=== PATIENT | male | born 1965 | race Caucasian/White ===

== ENCOUNTER → 2018-03-17 | Outpatient (CLI) | payer OTHER ==
--- NOTE | 2018-03-17 15:34 | XR ---
EXAMINATION TYPE: XR KUB DATE OF EXAM: 03/17/2018 COMPARISON: None INDICATION: Stone TECHNIQUE: Single view abdomen frontal view FINDINGS: There is a normal bowel gas pattern. Psoas margins are normal. No organomegaly is present. Cholecystectomy clips are in the right upper quadrant. No free air is identified. IMPRESSION: 1. Unremarkable Abdomen
== END | disposition home or self-care (01) ==
LOC: RADXRMAIN 15:08
PROVIDERS: ATTEND Urology
DX: N21.1 Calculus in urethra (principal)
CPT/HCPCS: 74018

== ENCOUNTER → 2018-03-27 | Outpatient (CLI) | payer OTHER ==
--- NOTE | 2018-03-27 09:28 | XR ---
EXAMINATION TYPE: XR KUB DATE OF EXAM: 03/27/2018 9:05 AM CLINICAL HISTORY: Right-sided nephrolithiasis. TECHNIQUE: Single supine KUB image of the abdomen is obtained. COMPARISON: 03/17/2018. FINDINGS: Scattered gas is seen in non-distended small bowel loops. Gas and fecal material is seen in non-distended colon. Multilevel mild degenerative changes of the thoracic spine are noted. Mild femo ral acetabular arthropathy is also seen. The lung bases are clear and the osseous structures are inta ct. Cholecystectomy clips are noted in the right upper quadrant. IMPRESSION: 1. No renal calculi are seen radiographically. 2. Nonobstructive bowel gas pattern.
== END | disposition home or self-care (01) ==
LOC: RADXRMAIN 08:53
PROVIDERS: ATTEND Urology
DX: N20.1 Calculus of ureter (principal)
CPT/HCPCS: 74018

== ENCOUNTER → 2018-03-31 | Outpatient (CLI) | payer OTHER ==
[2018-03-31 11:27] LABS: Basophils # (A) 0.1 k/uL (0-0.2); Basophils % (A) 1 %; Eosinophils # (A) 0.4 k/uL (0-0.7); Eosinophils % (A) 3 %; Lymphocytes # (A) 2.4 k/uL (1.0-4.8); Lymphocytes % (A) 19 %; MCH 32.4 pg (25.0-35.0); MCHC 33.6 g/dL (31.0-37.0); MCV 96.5 fL (80.0-100.0); Mean Platelet Volume 6.6; Monocytes # (A) 1.1 k/uL (0-1.0); Monocytes % (A) 9 %; Neutrophils # (A) 8.6 k/uL (1.3-7.7); Neutrophils % (A) 67 %; Platelet Count 257 k/uL (150-450); RBC 5.86 m/uL (4.30-5.90); RDW 12.9 % (11.5-15.5); WBC 12.8 k/uL (3.8-10.6)
[2018-03-31 11:34] LABS: HCT 56.6 % (39.0-53.0)
== END | disposition home or self-care (01) ==
LOC: LABWHC1 10:56 → LABPAT 10:58
PROVIDERS: ATTEND Urology
DX: Z01.812 Encounter for preprocedural laboratory examination (principal); N20.0 Calculus of kidney
CPT/HCPCS: 36415; 82565; 84520; 85025

== ENCOUNTER → 2018-03-31 | Outpatient (CLI) | payer OTHER ==
--- NOTE | 2018-03-31 09:58 | XR ---
EXAMINATION TYPE: XR KUB DATE OF EXAM: 03/31/2018 COMPARISON: 03/27/2018 INDICATION: Right ureteral calculus TECHNIQUE: Single view abdomen supine view FINDINGS: There is a normal bowel gas pattern. Psoas margins are normal. No organomegaly is present. There is a 1.0 cm calcific density at the tip of the right L3 transverse process level may be a right ureteral stone. This was present previously. No additional suspicious calcifications are evident. Fe jocelyn debris is present within the colon IMPRESSION: 1. Proximal right ureteral stone at the right L3 transverse process level.
== END ==
LOC: RADXRMAIN 09:16
PROVIDERS: ATTEND Urology
DX: N20.1 Calculus of ureter (principal)
CPT/HCPCS: 74018

== ENCOUNTER 2018-04-03 05:32 | Day surgery (SDC) | payer OTHER ==
[2018-03-31 12:46] VITALS: BMI 38.6
--- NOTE | 2018-04-02 20:08 | P.GSHP ---
History of Present Illness H&P Date: 04/02/18 53yo male with a 8mm stone at the right upj. He underwent eswl right 2 weeks ago He passed a small amount of stone THere is still stone at the upj He is still having pain. He comes for eswl right - Constitutional Constitutional: Reports anorexia, Reports chronic pain - Genitourinary (Male) Genitourinary: Reports as per HPI Past Medical History Past Medical History: Diabetes Mellitus, Hypertension, Osteoarthritis (OA), Renal Disease Additional Past Medical History / Comment(s): Hx of Diabetes, resolved for yrs and has been on no meds for yrs. Hx of and current kidney stones. History of Any Multi-Drug Resistant Organisms: None Reported Past Surgical History: Cholecystectomy Past Anesthesia/Blood Transfusion Reactions: No Reported Reaction Past Psychological History: No Psychological Hx Reported Smoking Status: Current every day smoker Past Alcohol Use History: Occasional Additional Past Alcohol Use History / Comment(s): Has been smoking 1 PPD, on and off for 15 yrs. Past Drug Use History: None Reported - Past Family History Mother Family Medical History: No Reported History Medications and Allergies Home Medications Medication Instructions Recorded Confirmed Type Tnpi-Zlmkdkgknkhu-Dptdvax Name 1 tab PO DIRECTED PRN 03/31/18 03/31/18 History Aspirin [Adult Low Dose Aspirin EC] 81 mg PO DAILY 03/31/18 03/31/18 History HYDROcodone/APAP 5-325MG [[place] 1 tab PO Q4HR PRN 03/31/18 03/31/18 History 5-325] Lisinopril [Zestril] 0.5 mg PO HS 03/31/18 03/31/18 History Allergies Allergy/AdvReac Type Severity Reaction Status Date / Time No Known Allergies Allergy Verified 03/31/18 12:44 Surgical - Exam - General well developed, well nourished, moderate distress - Eyes PERRL - ENT no hearing loss - Neck no masses, trachea midline - Respiratory normal expansion, normal respiratory effort - Cardiovascular Rhythm: regular - Abdomen Abdomen: soft, tender - Genitourinary normal penis with no external lesions, testicles present - Neurologic normal coordination, normal sensation - Musculoskeletal normal gait, normal posture - Psychiatric oriented to time, oriented to person, oriented to place, speech is normal, memory intact Assessment and Plan Assessment: Impression: right upj atone Plan: eswl right
[2018-04-03 06:33] LABS: Glucose,Whole Blood 122 mg/dL (75-99)
[2018-04-03 06:34] VITALS: RESP 16; TEMP 97.9
[2018-04-03] MEDS ORDERED: LIDOCAINE 1% 20 ML VIAL (10MG/ML) FOR IV START INTRADERMA ONE (06:34)
[2018-04-03] MEDS ORDERED: LACTATED RINGERS 1,000 ML IV ONE ×2 (06:34→08:20)
--- NOTE | 2018-04-03 07:14 | XR ---
EXAMINATION TYPE: XR KUB DATE OF EXAM: 04/03/2018 CLINICAL DATA: 53 year-old male right renal calculi, preoperative assessment, [facility] COMPARISON: 03/31/2018 FINDINGS: Cholecystectomy clips. Overall nonobstructive bowel gas pattern with mild stool in the right side of the abdomen. There is a 6 mm calcification redemonstrated in the right paramedian mid abdomen, unchan ged from prior. IMPRESSION: Stable 6 mm calcification on the right, possibly at the right UPJ or upper ureter.
[2018-04-03] MEDS ORDERED: PROPOFOL 10 MG/ML 20 ML VIAL IV ONE (07:35)
[2018-04-03] MEDS ORDERED: MIDAZOLAM 2 MG/2 ML VIAL ONE (07:35)
[2018-04-03] MEDS ORDERED: fentaNYL (PF) 50 MCG/ML 2 ML AMP ONE (07:35)
[2018-04-03] MEDS ORDERED: KETAMINE 10 MG/ML 20 ML VIAL ONE (07:35)
--- NOTE | 2018-04-03 08:25 | P.OP ---
Date of Procedure: 04/03/18 Preoperative Diagnosis: Right ureteral calculus Postoperative Diagnosis: Right ureteral calculus Procedure(s) Performed: Extracorporal shock wave lithotripsy Anesthesia: MAC Surgeon: Kris Barron Estimated Blood Loss (ml): 0 Pathology: none sent Condition: stable Disposition: PACU Indications for Procedure: The patient is a 53 year old male who underwent ESWL treatment of a calculus located at the right UPJ 2 weeks ago. The calculus fragmented only minimally. He continues to have a 5 x 8 mm calculus in the proximal right ureter. Treatment options were reviewed withy Dr Mcconnell and the patient prefers repeat ESWL. Description of Procedure: The patient was taken to the operating suite and placed in the supine position on the fluoroscopy table. The right ureteral calculus was localized using biplanar fluoroscopy. Intravenous sedation was given. Lithotripsy was performed using the [employer]ier Compact Delta II unit. A 2 minute pause was taken after 200 shocks. He receieved 1500 shocks at level 4 and 1000 at level 5. There appeared to be fragmentation of the calculus. The anesthesia was reversed and the patient was taken to the recovery room in satisfactory condition. He will see Dr Mcconnell in 1 week at which time a KUB will be repeated.
[2018-04-03 08:47] LABS: Glucose,Whole Blood 122 mg/dL (75-99)
[2018-04-03 08:53] VITALS: BP 142/95; PULSE 72
== END 2018-04-03 09:14 | disposition home or self-care (01) ==
LOC: ORWHC2ENDO 05:32
PROVIDERS: ATTEND Urology
DX: N20.1 Calculus of ureter (principal); I12.9 Hypertensive chronic kidney disease with stage 1 through stage 4 chronic kidney disease, or unspecified chronic kidney disease; F17.210 Nicotine dependence, cigarettes, uncomplicated; N18.9 Chronic kidney disease, unspecified; M19.90 Unspecified osteoarthritis, unspecified site; Z79.82 Long term (current) use of aspirin; Z79.899 Other long term (current) drug therapy
CPT/HCPCS: 74018; 50590; J2250; J3010; J2704

== ENCOUNTER 2019-07-25 04:44 | Emergency (ER) | payer OTHER ==
[2019-07-25] MEDS ORDERED: KETOROLAC 30 MG/ML 1 ML VIAL IVP STA (05:19)
[2019-07-25] MEDS ORDERED: ONDANSETRON 4 MG/2 ML VIAL IVP STA (05:19)
[2019-07-25] MEDS ORDERED: HYDROmorphone 0.5 MG/0.5 ML SYRINGE IVP STA ×2 (05:19→06:35)
--- NOTE | 2019-07-25 05:26 | ED ---
Abdominal Pain HPI - General Chief Complaint: Abdominal Pain Stated Complaint: Back Pain/Hx Kidney Stones Time Seen by Provider: 07/25/19 05:01 Source: patient Mode of arrival: ambulatory Limitations: no limitations - History of Present Illness Initial Comments: This patient's 54-year-old man who gives history of previous kidney stones and presents with what he believes is onset of another kidney stone. He states he had been having some intermittent mild to moderate flank pains over the past few days, but then over the course of the night has developed severe left flank pain radiating towards his left groin. He states pain is sharp, seems to come in waves, and has been accompanied by hematuria. He has not discovered any worsening factors. He states it may have had minimal improvement with a Lucama that he had taken. MD Complaint: flank pain -: days(s) Location: L flank Radiation: LLQ Migration to: no migration Severity: severe Quality: sharp Consistency: colicky Improves With: nothing Worsens With: nothing Associated Symptoms: hematuria - Related Data Home Medications Medication Instructions Recorded Confirmed Jbhw-Gzwafhqrqzhp-Iquivrq Name 1 tab PO DIRECTED PRN 03/31/18 03/31/18 Aspirin [Adult Low Dose Aspirin EC] 81 mg PO DAILY 03/31/18 03/31/18 HYDROcodone/APAP 5-325MG [[place] 1 tab PO Q4HR PRN 03/31/18 03/31/18 5-325] Lisinopril [Zestril] 0.5 mg PO HS 03/31/18 04/03/18 Previous Rx's Medication Instructions Recorded Ciprofloxacin HCl [Cipro] 500 mg PO Q12HR #14 tablet 07/25/19 Hydrocodone/Acetaminophen [[place] 1 each PO Q6HR PRN #15 tab 07/25/19 5-325] Tamsulosin [Flomax] 0.4 mg PO DAILY #14 cap 07/25/19 Allergies Allergy/AdvReac Type Severity Reaction Status Date / Time No Known Allergies Allergy Verified 07/25/19 05:00 Review of Systems ROS Statement: Those systems with pertinent positive or pertinent negative responses have been documented in the HPI. ROS Other: All systems not noted in ROS Statement are negative. Constitutional: Denies: fever, chills Respiratory: Denies: cough, dyspnea Cardiovascular: Denies: chest pain, palpitations Gastrointestinal: Reports: as per HPI, abdominal pain, nausea. Denies: vomiting, diarrhea, constipation, melena, hematochezia Genitourinary: Reports: urgency, frequency, hematuria. Denies: dysuria, testicular pain, testicular mass Musculoskeletal: Reports: back pain Skin: Denies: rash Neurological: Denies: headache, weakness, numbness Hematological/Lymphatic: Denies: easy bleeding Past Medical History Past Medical History: Diabetes Mellitus, Hypertension, Osteoarthritis (OA), Renal Disease Additional Past Medical History / Comment(s): Hx of Diabetes, resolved for yrs and has been on no meds for yrs. Hx of and current kidney stones. History of Any Multi-Drug Resistant Organisms: None Reported Past Surgical History: Cholecystectomy Past Anesthesia/Blood Transfusion Reactions: No Reported Reaction Past Psychological History: No Psychological Hx Reported Smoking Status: Current every day smoker Past Alcohol Use History: Occasional Past Drug Use History: Marijuana - Past Family History Mother Family Medical History: No Reported History General Exam Limitations: no limitations General appearance: alert, in no apparent distress Head exam: Present: atraumatic, normocephalic Eye exam: Present: normal appearance. Absent: scleral icterus, conjunctival inj ection Respiratory exam: Present: normal lung sounds bilaterally. Absent: respiratory distress, wheezes, rales, rhonchi, stridor Cardiovascular Exam: Present: regular rate, normal rhythm, normal heart sounds. Absent: systolic murmur, diastolic murmur, rubs, gallop GI/Abdominal exam: Present: soft, normal bowel sounds. Absent: distended, tenderness, guarding, rebound, rigid, mass, pulsatile mass, hernia Extremities exam: Present: normal inspection, normal capillary refill. Absent: pedal edema, calf tenderness Back exam: Present: normal inspection, CVA tenderness (L). Absent: CVA tenderness (R) Neurological exam: Present: alert Skin exam: Present: warm, dry, intact, normal color. Absent: rash Course Vital Signs 07/25/19 07/25/19 07/25/19 04:57 05:53 06:26 Temperature 97.4 F L Pulse Rate 91 83 78 Respiratory 18 19 18 Rate Blood Pressure 180/84 157/95 152/93 O2 Sat by Pulse 95 98 97 Oximetry Medical Decision Making - Lab Data Result diagrams: 07/25/19 05:15 07/25/19 05:15 Lab Results 07/25/19 07/25/1907/25/20 Range/Units 05:15 05:15 05:15 WBC 13.3 H (3.8-10.6) k/uL RBC 5.66 (4.30-5.90) m/uL Hgb 18.0 H (13.0-17.5) gm/dL Hct 54.8 H (39.0-53.0) % MCV 96.8 (80.0-100.0) fL MCH 31.9 (25.0-35.0) pg MCHC 32.9 (31.0-37.0) g/dL RDW 13.1 (11.5-15.5) % Plt Count 229 (150-450) k/uL Neutrophils % 81 % Lymphocytes % 10 % Monocytes % 6 % Eosinophils % 1 % Basophils % 1 % Neutrophils # 10.8 H (1.3-7.7) k/uL Lymphocytes # 1.3 (1.0-4.8) k/uL Monocytes # 0.8 (0-1.0) k/uL Eosinophils # 0.2 (0-0.7) k/uL Basophils # 0.1 (0-0.2) k/uL Sodium 141 (137-145) mmol/L Potassium 4.7 (3.5-5.1) mmol/L Chloride 114 H (98-107) mmol/L Carbon Dioxide 19 L (22-30) mmol/L Anion Gap 8 mmol/L BUN 21 H (9-20) mg/dL Creatinine 1.32 H (0.66-1.25) mg/dL Est GFR (CKD-EPI)AfAm 70 (>60 ml/min/1.73 sqM) Est GFR (CKD-EPI)NonAf 60 (>60 ml/min/1.73 sqM) Glucose 146 H (74-99) mg/dL Calcium 10.8 H (8.4-10.2) mg/dL Total Bilirubin 0.7 (0.2-1.3) mg/dL AST 30 (17-59) U/L ALT 30 (4-49) U/L Alkaline Phosphatase 101 (38-126) U/L Total Protein 7.1 (6.3-8.2) g/dL Albumin 4.2 (3.5-5.0) g/dL Amylase 36 (30-110) U/L Lipase 94 (23-300) U/L Urine Color Red Urine Appearance Cloudy (Clear) Urine pH 5.5 (5.0-8.0) Ur Specific [place] 1.020 (1.001-1.035) Urine Protein 1+ H (Negative) Urine Glucose (UA) Negative (Negative) Urine Ketones Trace H (Negative) Urine Blood Large H (Negative) Urine Nitrite Negative (Negative) Urine Bilirubin Negative (Negative) Urine Urobilinogen <2.0 (<2.0) mg/dL Ur Leukocyte Esterase Small H (Negative) Urine RBC >182 H (0-5) /hpf Urine WBC 34 H (0-5) /hpf Urine Bacteria Rare H (None) /hpf Urine Mucus Rare H (None) /hpf Urine Yeast (Bud[place]) Many H (None) /hpf Disposition Clinical Impression: Calculus of kidney Disposition: HOME SELF-CARE Condition: Good Instructions (If sedation given, give patient instructions): Kidney Stones (ED) Prescriptions: Ciprofloxacin HCl [Cipro] 500 mg PO Q12HR #14 tablet Tamsulosin [Flomax] 0.4 mg PO DAILY #14 cap Hydrocodone/Acetaminophen [[place] 5-325] 1 each PO Q6HR PRN #15 tab PRN Reason: Pain Is patient prescribed a controlled substance at d/c from ED?: No Referrals: Nonstaff,Physician [Primary Care Provider] - 1-2 days Carmelo Mcconnell MD [STAFF PHYSICIAN] - 1-2 days
[2019-07-25 05:27] LABS: Basophils # (A) 0.1 k/uL (0-0.2); Basophils % (A) 1 %; Eosinophils # (A) 0.2 k/uL (0-0.7); Eosinophils % (A) 1 %; HCT 54.8 % (39.0-53.0); Lymphocytes # (A) 1.3 k/uL (1.0-4.8); Lymphocytes % (A) 10 %; MCH 31.9 pg (25.0-35.0); MCHC 32.9 g/dL (31.0-37.0); MCV 96.8 fL (80.0-100.0); Mean Platelet Volume 7.4; Monocytes # (A) 0.8 k/uL (0-1.0); Monocytes % (A) 6 %; Neutrophils # (A) 10.8 k/uL (1.3-7.7); Neutrophils % (A) 81 %; Platelet Count 229 k/uL (150-450); RBC 5.66 m/uL (4.30-5.90); RDW 13.1 % (11.5-15.5); WBC 13.3 k/uL (3.8-10.6)
[2019-07-25 05:38] LABS: Albumin 4.2 g/dL (3.5-5.0); Calcium 10.8 mg/dL (8.4-10.2); Potassium 4.7 mmol/L (3.5-5.1); Total Bilirubin 0.7 mg/dL (0.2-1.3); Total Protein 7.1 g/dL (6.3-8.2)
[2019-07-25 05:47] LABS: Appearance,Urine Cloudy (Clear); Bacteria,Urine Rare /hpf; Bilirubin,Urine Negative (Negative); Blood,Urine Large (Negative); Budding Yeast,Urine Many /hpf; Color,Urine Red; Glucose,Urine (UA) Negative (Negative); Ketones,Urine Trace (Negative); Leukocyte Esterase,Urine Small (Negative); Mucus,Urine Rare /hpf; Nitrite,Urine Negative (Negative); PH, Urine 5.5 (5.0-8.0); Protein,Urine 1+ (Negative); RBC,Urine >182 /hpf (0-5); Urobilinogen,Urine <2.0 mg/dL (<2.0); WBC,Urine 34 /hpf (0-5)
[2019-07-25] MEDS ORDERED: TAMSULOSIN 0.4 MG CAP.ER.24H PO STA (06:00)
--- NOTE | 2019-07-25 06:09 | CT ---
EXAM: CT Abdomen and Pelvis Without Intravenous Contrast CLINICAL HISTORY: L flank pain, stone protocol TECHNIQUE: Axial computed tomography images of the abdomen and pelvis without intravenous contrast. CTDI is 35.88 mGy and DLP is 2056 mGy-cm. This CT exam was performed using one or more of the following dose reduction techniques: automated exposure control, adjustment of the mA and/or kV according to patient size, and/or use of iterative reconstruction technique. Coronal and sagittal reconstructions are performed. COMPARISON: No relevant prior studies available. FINDINGS: Lung bases: Unremarkable. No mass. No consolidation. ABDOMEN: Liver: Unremarkable. Gallbladder and bile ducts: Cholecystectomy clips. No ductal dilation. Pancreas: Unremarkable. No ductal dilation. Spleen: Unremarkable. No splenomegaly. Adrenals: Unremarkable. No mass. Kidneys and ureters: 4 mm obstructing left vesicoureteral junction stone causes mild left hydroureter, hydronephrosis and small amount of perinephric stranding. 9 mm right vesicoureteral junction stone without significant hydroureter or hydronephrosis. Stomach and bowel: Unremarkable. No obstruction. No mucosal thickening. PELVIS: Appendix: No findings to suggest acute appendicitis. Bladder: Unremarkable. No stones. Reproductive: Unremarkable as visualized. ABDOMEN and PELVIS: Intraperitoneal space: Unremarkable. No free air. No significant fluid collection. Bones/joints: Moderate degenerative changes. No acute fracture. No dislocation. Soft tissues: Unremarkable. Vasculature: Small amount of atherosclerotic calcifications No abdominal aortic aneurysm. Lymph nodes: Unremarkable. No enlarged lymph nodes. IMPRESSION: 1. 4 mm obstructing left vesicoureteral junction stone causes mild left hydroureter, hydronephrosis and small amount of perinephric stranding. 2. 9 mm right vesicoureteral junction stone without significant hydroureter or hydronephrosis.
[2019-07-25 06:27] VITALS: BP 152/93; PULSE 78; RESP 18
[2019-07-25 06:59] VITALS: TEMP 97.7
== END 2019-07-25 07:01 | disposition home or self-care (01) ==
LOC: EC 04:44
DX: N13.2 Hydronephrosis with renal and ureteral calculous obstruction (principal); I10 Essential (primary) hypertension; F17.200 Nicotine dependence, unspecified, uncomplicated; Z79.899 Other long term (current) drug therapy; Z90.49 Acquired absence of other specified parts of digestive tract
CPT/HCPCS: 36415; 80053; 82150; 83690; 85025; 81001; 87086; 74176; 99284; 96374; 96375 ×2; 96376; J2405; J1885; J1170

== ENCOUNTER 2019-09-29 05:03 | Emergency (ER) | payer OTHER ==
[2019-09-29 05:12] VITALS: TEMP 97.9
[2019-09-29] MEDS ORDERED: KETOROLAC 30 MG/ML 1 ML VIAL IVP STA (05:20)
[2019-09-29] MEDS ORDERED: MORPHINE SULFATE 4 MG/ML SYRINGE IV STA (05:20)
[2019-09-29] MEDS ORDERED: SODIUM CHLORIDE 0.9% 1,000 ML IV STA (05:20)
--- NOTE | 2019-09-29 05:21 | ED ---
Abdominal Pain HPI - General Chief Complaint: Abdominal Pain Stated Complaint: poss kidney stone Time Seen by Provider: 09/29/19 05:09 Source: patient, RN notes reviewed, old records reviewed Mode of arrival: ambulatory Limitations: no limitations - History of Present Illness Initial Comments: This is a 54-year-old male DF for evaluation evaluation. Right-sided flank pain severe. No other issues noted. No fevers no blood in the urine mild nausea no vomiting. Patient has history of kidney stones states his pain in the symptoms are worse. Patient's pain is severe unable to tolerate pain medication secondary severe nausea and vomiting MD Complaint: abdominal pain -: hour(s) Location: LLQ, suprapubic, L flank Radiation: L flank Migration to: suprapubic Severity: moderate, severe Severity scale (1-10): 8 Quality: stabbing, sharp Consistency: constant Improves With: nothing Worsens With: nothing Associated Symptoms: nausea - Related Data Home Medications Medication Instructions Recorded Confirmed Lnyi-Iajgrgtuyoyl-Lpyztej Name 1 tab PO DIRECTED PRN 03/31/18 03/31/18 Aspirin [Adult Low Dose Aspirin EC] 81 mg PO DAILY 03/31/18 03/31/18 HYDROcodone/APAP 5-325MG [[place] 1 tab PO Q4HR PRN 03/31/18 03/31/18 5-325] Lisinopril [Zestril] 0.5 mg PO HS 03/31/18 04/03/18 Previous Rx's Medication Instructions Recorded Ciprofloxacin HCl [Cipro] 500 mg PO Q12HR #14 tablet 07/25/19 Hydrocodone/Acetaminophen [[place] 1 each PO Q6HR PRN #15 tab 07/25/19 5-325] Tamsulosin [Flomax] 0.4 mg PO DAILY #14 cap 07/25/19 Ondansetron Odt [Zofran Odt] 4 mg PO Q8HR PRN #14 tab 09/29/19 Tamsulosin [Flomax] 0.4 mg PO DAILY #7 cap 09/29/19 Allergies Allergy/AdvReac Type Severity Reaction Status Date / Time No Known Allergies Allergy Verified 09/29/19 05:12 Review of Systems ROS Statement: Those systems with pertinent positive or pertinent negative responses have been documented in the HPI. ROS Other: All systems not noted in ROS Statement are negative. Past Medical History Past Medical History: Diabetes Mellitus, Hypertension, Osteoarthritis (OA), Renal Disease Additional Past Medical History / Comment(s): Hx of Diabetes, resolved for yrs and has been on no meds for yrs. Hx of and current kidney stones. History of Any Multi-Drug Resistant Organisms: None Reported Past Surgical History: Cholecystectomy Past Anesthesia/Blood Transfusion Reactions: No Reported Reaction Past Psychological History: No Psychological Hx Reported Smoking Status: Current every day smoker Past Alcohol Use History: Occasional Past Drug Use History: Marijuana - Past Family History Mother Family Medical History: No Reported History General Exam Limitations: no limitations General appearance: alert, in no apparent distress, anxious Head exam: Present: atraumatic, normocephalic, normal inspection Eye exam: Present: normal appearance, PERRL, EOMI. Absent: scleral icterus, conjunctival injection, periorbital swelling ENT exam: Present: normal exam, mucous membranes moist Neck exam: Present: normal inspection. Absent: tenderness, meningismus, lymphadenopathy Respiratory exam: Present: normal lung sounds bilaterally. Absent: respiratory distress, wheezes, rales, rhonchi, stridor Cardiovascular Exam: Present: regular rate, normal rhythm, normal heart sounds. Absent: systolic murmur, diastolic murmur, rubs, gallop, clicks GI/Abdominal exam: Present: soft, normal bowel sounds. Absent: distended, tenderness, guarding, rebound, rigid Extremities exam: Present: normal inspection, full ROM, normal capillary refill. Absent: tenderness, pedal edema, joint swelling, calf tenderness Back exam: Present: normal inspection Neurological exam: Present: alert, oriented X3, CN II-XII intact Psychiatric exam: Present: normal affect, normal mood Skin exam: Present: warm, dry, intact, normal color. Absent: rash Course Vital Signs 09/29/19 09/29/19 05:10 06:30 Temperature 97.9 F Pulse Rate 97 79 Respiratory 20 16 Rate Blood Pressure 163/107 144/90 O2 Sat by Pulse 96 97 Oximetry - Reevaluation(s) Reevaluation #1: medical record is reviewed Patient has pain control Spoke patient length regarding findings and questions are answered Spoke with patient's urologist will see patient in office today Medical Decision Making - Medical Decision Making 54 male DF for evaluation of bowel pain right-sided ureteral stone. Patient stone pain is improved will follow-up as an outpatient - Lab Data Result diagrams: 09/29/19 05:29 09/29/19 05:29 Lab Results 09/29/19 09/29/19 09/29/19 Range/Units 05:29 05:29 05:29 WBC 12.2 H (3.8-10.6) k/uL RBC 5.56 (4.30-5.90) m/uL Hgb 17.7 H (13.0-17.5) gm/dL Hct 52.9 (39.0-53.0) % MCV 95.1 (80.0-100.0) fL MCH 31.8 (25.0-35.0) pg MCHC 33.4 (31.0-37.0) g/dL RDW 13.1 (11.5-15.5) % Plt Count 234 (150-450) k/uL Neutrophils % 78 % Lymphocytes % 14 % Monocytes % 5 % Eosinophils % 2 % Basophils % 0 % Neutrophils # 9.5 H (1.3-7.7) k/uL Lymphocytes # 1.7 (1.0-4.8) k/uL Monocytes # 0.6 (0-1.0) k/uL Eosinophils # 0.2 (0-0.7) k/uL Basophils # 0.0 (0-0.2) k/uL Sodium 139 (137-145) mmol/L Potassium 4.7 (3.5-5.1) mmol/L Chloride 108 H (98-107) mmol/L Carbon Dioxide 24 (22-30) mmol/L Anion Gap 7 mmol/L BUN 26 H (9-20) mg/dL Creatinine 1.36 H (0.66-1.25) mg/dL Est GFR (CKD-EPI)AfAm 67 (>60 ml/min/1.73 sqM) Est GFR (CKD-EPI)NonAf 58 (>60 ml/min/1.73 sqM) Glucose 148 H (74-99) mg/dL Plasma Lactic Acid [place] 1.4 (0.7-2.0) mmol/L Calcium 10.5 H (8.4-10.2) mg/dL Total Bilirubin 0.7 (0.2-1.3) mg/dL AST 27 (17-59) U/L ALT 28 (4-49) U/L Alkaline Phosphatase 100 (38-126) U/L Total Protein 7.3 (6.3-8.2) g/dL Albumin 4.2 (3.5-5.0) g/dL Amylase 39 (30-110) U/L Lipase 123 (23-300) U/L Urine Color Urine Appearance (Clear) Urine pH (5.0-8.0) Ur Specific [place] (1.001-1.035) Urine Protein (Negative) Urine Glucose (UA) (Negative) Urine Ketones (Negative) Urine Blood (Negative) Urine Nitrite (Negative) Urine Bilirubin (Negative) Urine Urobilinogen (<2.0) mg/dL Ur Leukocyte Esterase (Negative) Urine RBC (0-5) /hpf Urine WBC (0-5) /hpf Ur Squamous Epith Cells (0-4) /hpf Urine Mucus (None) /hpf 09/29/19 Range/Units 06:31 WBC (3.8-10.6) k/uL RBC (4.30-5.90) m/uL Hgb (13.0-17.5) gm/dL Hct (39.0-53.0) % MCV (80.0-100.0) fL MCH (25.0-35.0) pg MCHC (31.0-37.0) g/dL RDW (11.5-15.5) % Plt Count (150-450) k/uL Neutrophils % % Lymphocytes % % Monocytes % % Eosinophils % % Basophils % % Neutrophils # (1.3-7.7) k/uL Lymphocytes # (1.0-4.8) k/uL Monocytes # (0-1.0) k/uL Eosinophils # (0-0.7) k/uL Basophils # (0-0.2) k/uL Sodium (137-145) mmol/L Potassium (3.5-5.1) mmol/L Chloride (98-107) mmol/L Carbon Dioxide (22-30) mmol/L Anion Gap mmol/L BUN (9-20) mg/dL Creatinine (0.66-1.25) mg/dL Est GFR (CKD-EPI)AfAm (>60 ml/min/1.73 sqM) Est GFR (CKD-EPI)NonAf (>60 ml/min/1.73 sqM) Glucose (74-99) mg/dL Plasma Lactic Acid [place] (0.7-2.0) mmol/L Calcium (8.4-10.2) mg/dL Total Bilirubin (0.2-1.3) mg/dL AST (17-59) U/L ALT (4-49) U/L Alkaline Phosphatase (38-126) U/L Total Protein (6.3-8.2) g/dL Albumin (3.5-5.0) g/dL Amylase (30-110) U/L Lipase (23-300) U/L Urine Color Yellow Urine Appearance Clear (Clear) Urine pH 5.5 (5.0-8.0) Ur Specific [place] 1.019 (1.001-1.035) Urine Protein Negative (Negative) Urine Glucose (UA) Negative (Negative) Urine Ketones Negative (Negative) Urine Blood Small H (Negative) Urine Nitrite Negative (Negative) Urine Bilirubin Negative (Negative) Urine Urobilinogen <2.0 (<2.0) mg/dL Ur Leukocyte Esterase Moderate H (Negative) Urine RBC 12 H (0-5) /hpf Urine WBC 55 H (0-5) /hpf Ur Squamous Epith Cells <1 (0-4) /hpf Urine Mucus Rare H (None) /hpf - Radiology Data Radiology results: report reviewed (CT pelvis shows positive right-sided ureteral calculus), image reviewed Disposition Clinical Impression: Right ureteral calculus Disposition: HOME SELF-CARE Condition: Good Instructions (If sedation given, give patient instructions): Ureteral Stones (ED) Prescriptions: Tamsulosin [Flomax] 0.4 mg PO DAILY #7 cap Ondansetron Odt [Zofran Odt] 4 mg PO Q8HR PRN #14 tab PRN Reason: Nausea Is patient prescribed a controlled substance at d/c from ED?: No Referrals: None,Stated [Primary Care Provider] - 1-2 days
[2019-09-29 05:43] LABS: Basophils % (A) 0 %; Eosinophils # (A) 0.2 k/uL (0-0.7); Eosinophils % (A) 2 %; HCT 52.9 % (39.0-53.0); HGB 17.7 gm/dL (13.0-17.5); Lymphocytes # (A) 1.7 k/uL (1.0-4.8); Lymphocytes % (A) 14 %; MCH 31.8 pg (25.0-35.0); MCHC 33.4 g/dL (31.0-37.0); MCV 95.1 fL (80.0-100.0); Mean Platelet Volume 7.1; Monocytes # (A) 0.6 k/uL (0-1.0); Monocytes % (A) 5 %; Neutrophils # (A) 9.5 k/uL (1.3-7.7); Neutrophils % (A) 78 %; Platelet Count 234 k/uL (150-450); RBC 5.56 m/uL (4.30-5.90); RDW 13.1 % (11.5-15.5); WBC 12.2 k/uL (3.8-10.6)
[2019-09-29 05:52] LABS: Albumin 4.2 g/dL (3.5-5.0); Calcium 10.5 mg/dL (8.4-10.2); Potassium 4.7 mmol/L (3.5-5.1); Total Bilirubin 0.7 mg/dL (0.2-1.3); Total Protein 7.3 g/dL (6.3-8.2)
--- NOTE | 2019-09-29 05:56 | CT ---
EXAMINATION TYPE: CT abdomen pelvis wo con DATE OF EXAM: 09/29/2019 COMPARISON: 07/25/2019 HISTORY: Right flank pain CT DLP: mGycm Automated exposure control for dose reduction was used. Multiple axial sections were obtained from the diaphragm to the floor the pelvis with no contrast. There is minimal subsegmental atelectasis at the lung bases. Heart size is normal. There is no perica rdial effusion. There is no pleural effusion. There are clips from cholecystectomy. Bile ducts are not dilated. Liver shows no focal defect. There is no pancreatic mass. Spleen appears intact. Stomach appears intact. There is 2 cm accessory spleen posteriorly. There is no adrenal mass. Kidneys have normal size. There is right-sided hydronephrosis and hydrouret er. There is 8 mm calculus at the right ureterovesical junction. Bladder distends smoothly. There is no free fluid in the pelvis. There is no inguinal hernia. There is no retroperitoneal adenopathy. There are scattered sigmoid diverticula. There is no sign of diverticulitis. Appendix is not seen. There is no sign of thickened appendix. There is no mesenteric edema. There is no ascites or free air. There is no sign of a bowel obstruction. Lumbar vertebra have normal alignment. Posterior elements are intact. There is no compression fractur e. Bony pelvis is intact. IMPRESSION: Obstructing calculus at the right ureterovesical junction with increased right side hydronephrosis an d hydroureter compared to old exam. There is clearing of the smaller 3 mm calculus at the left ureter ovesical junction compared to old exam and clearing of the left side hydronephrosis.
[2019-09-29] MEDS ORDERED: ACET/COD 300 MG/30 MG STARTER PACK 6 TAB BTL PO STA (06:13)
[2019-09-29] MEDS ORDERED: HYDROmorphone 1 MG/ML 1 ML SYRINGE IVP STA (06:19)
[2019-09-29 06:30] VITALS: BP 144/90; PULSE 79; RESP 16
[2019-09-29] MEDS ORDERED: TAMSULOSIN 0.4 MG CAP.ER.24H PO STA (06:34)
[2019-09-29 06:51] LABS: Appearance,Urine Clear (Clear); Bilirubin,Urine Negative (Negative); Blood,Urine Small (Negative); Color,Urine Yellow; Glucose,Urine (UA) Negative (Negative); Ketones,Urine Negative (Negative); Leukocyte Esterase,Urine Moderate (Negative); Mucus,Urine Rare /hpf; Nitrite,Urine Negative (Negative); PH, Urine 5.5 (5.0-8.0); Protein,Urine Negative (Negative); RBC,Urine 12 /hpf (0-5); Specific Gravity,Urine 1.019 (1.001-1.035); Squamous Epithelial Cell,Urine <1 /hpf (0-4); Urobilinogen,Urine <2.0 mg/dL (<2.0); WBC,Urine 55 /hpf (0-5)
== END 2019-09-29 06:45 | disposition home or self-care (01) ==
LOC: EC 05:03
DX: N13.2 Hydronephrosis with renal and ureteral calculous obstruction (principal); E11.9 Type 2 diabetes mellitus without complications; I10 Essential (primary) hypertension; F17.200 Nicotine dependence, unspecified, uncomplicated; Z79.82 Long term (current) use of aspirin; Z79.899 Other long term (current) drug therapy; Z90.49 Acquired absence of other specified parts of digestive tract
CPT/HCPCS: 36415; 80053; 82150; 83605; 83690; 85025; 81001; 87086; 74176; 99285; 96374; 96375 ×2; 96361; J2270; J1885; J1170

== ENCOUNTER 2019-10-20 07:10 | Emergency (ER) | payer OTHER ==
[2019-10-20 07:17] VITALS: RESP 18; TEMP 98.1
[2019-10-20] MEDS ORDERED: SODIUM CHLORIDE 0.9% 1,000 ML IV STA (07:21)
[2019-10-20] MEDS ORDERED: KETOROLAC 30 MG/ML 1 ML VIAL IVP STA (07:30)
[2019-10-20] MEDS ORDERED: MORPHINE SULFATE 4 MG/ML SYRINGE IV STA (07:30)
--- NOTE | 2019-10-20 07:34 | ED ---
General Adult HPI - General Chief complaint: Urogenital Stated complaint: kidney stones Time Seen by Provider: 10/20/19 07:20 Source: patient Mode of arrival: ambulatory Limitations: no limitations - History of Present Illness Initial comments: Dictation was produced using [employer] dictation software. please excuse any grammatical, word or spelling errors. This patient was cared for during a federal and state declared state of emergency secondary to Covid 19 Chief Complaint: 54-year-old male past medical history of kidney stones presents with right-sided flank pain. History of Present Illness: 54-year-old male who presents today with right-sided flank pain starting at 2 AM this morning. Patient states he has a history of kidney stones. States that his symptoms are exactly like his previous kidney stone episodes. Patient states his symptoms started 2 AM. Prior to the onset of his symptoms he was feeling at baseline. There weeks ago he was seen for the same complaint. He had a CT which showed a 8 mm calculus. After the episode 3 weeks ago he has been relatively asymptomatic. States that the pain is severe. It is colicky in nature. States that the pain radiates to his groin. Denies any changes in his urine color. Patient has no history of aortic aneurysm or aortic disease. The ROS documented in this emergency department record has been reviewed and confirmed by me. Those systems with pertinent positive or negative responses have been documented in the HPI. All other systems are other negative and/or noncontributory. PHYSICAL EXAM: General Impression: Alert and oriented x3, acute distress secondary to pain HEENT: Normocephalic atraumatic, extra-ocular movements intact, pupils equal and reactive to light bilaterally, mucous membranes moist. Cardiovascular: Heart regular rate and rhythm Chest: Able to complete full sentences, no retractions, no tachypnea Abdomen: abdomen soft, non-tender, non-distended, no organomegaly Musculoskeletal: Pulses present and equal in all extremities, no peripheral edema Motor: no focal deficits noted Neurological: CN II-XII grossly intact, no focal motor or sensory deficits noted Skin: Intact with no visualized rashes Psych: Normal affect and mood ED course: 54-year-old male w clinical presentation consistent with nephrolithiasis. Vital signs upon arrival are within acceptable limits. Patient given intravenous fluids and analgesics. Laboratory evaluation obtained. Leukocytosis of 18.6 which is slightly higher than 3 weeks ago. Metabolic panel is within acceptable limits. Urinalysis shows 16 red blood cells and 10 white blood cells. Given patient's elevated white count and elevated white blood cell count believe patient would benefit from antibiotics. Ultrasound of the urine system shows fullness to the right renal collecting system without gross hydronephrosis. Patient reevaluated bedside is found to be stable medical condition. Repeat vital signs are within acceptable limits. She is well-appearing. He is agreeable for discharge. He states that he recently had an insurance change and is having difficulty following up with urologist. He is currently working with his primary care physician to try and schedule a urologist appointment that except his insurance. Patient is agreeable for discharge. Patient given prescription for analgesia, Flomax and antibiotics. Return parameters discussed. Patient clear for discharge. - Related Data Home Medications Medication Instructions Recorded Confirmed [id number]-Ihwqrun Name 1 tab PO DIRECTED PRN 03/31/18 03/31/18 Aspirin [Adult Low Dose Aspirin EC] 81 mg PO DAILY 03/31/18 03/31/18 HYDROcodone/APAP 5-325MG [Freeborn 1 tab PO Q4HR PRN 03/31/18 03/31/18 5-325] Lisinopril [Zestril] 0.5 mg PO HS 03/31/18 04/03/18 Previous Rx's Medication Instructions Recorded Ciprofloxacin HCl [Cipro] 500 mg PO Q12HR #14 tablet 07/25/19 Hydrocodone/Acetaminophen [Freeborn 1 each PO Q6HR PRN #15 tab 07/25/19 5-325] Tamsulosin [Flomax] 0.4 mg PO DAILY #14 cap 07/25/19 Ondansetron Odt [Zofran Odt] 4 mg PO Q8HR PRN #14 tab 09/29/19 Tamsulosin [Flomax] 0.4 mg PO DAILY #7 cap 09/29/19 Cephalexin [Keflex] 500 mg PO Q6HR 5 Days #20 cap 10/20/19 HYDROcodone/APAP 5-325MG [Freeborn 1 tab PO Q6HR PRN 3 Days #12 tab 10/20/19 5-325] Tamsulosin HCl [Flomax] 0.4 mg PO DAILY 5 Days #5 capsule 10/20/19 Allergies Allergy/AdvReac Type Severity Reaction Status Date / Time No Known Allergies Allergy Verified 10/20/19 07:17 Review of Systems ROS Statement: Those systems with pertinent positive or pertinent negative responses have been documented in the HPI. ROS Other: All systems not noted in ROS Statement are negative. Past Medical History Past Medical History: Diabetes Mellitus, Hypertension, Osteoarthritis (OA), Renal Disease Additional Past Medical History / Comment(s): Hx of Diabetes, resolved for yrs and has been on no meds for yrs. Hx of and current kidney stones. History of Any Multi-Drug Resistant Organisms: None Reported Past Surgical History: Cholecystectomy Past Anesthesia/Blood Transfusion Reactions: No Reported Reaction Past Psychological History: No Psychological Hx Reported Smoking Status: Current every day smoker Past Alcohol Use History: Occasional Past Drug Use History: Marijuana - Past Family History Mother Family Medical History: No Reported History General Exam Limitations: no limitations Course Vital Signs 10/20/19 10/20/19 07:15 08:35 Temperature 98.1 F Pulse Rate 107 H 78 Respiratory 18 18 Rate Blood Pressure 160/107 155/85 O2 Sat by Pulse 98 98 Oximetry Medical Decision Making - Lab Data Result diagrams: 10/20/19 07:30 10/20/19 07:30 Lab Results 10/20/19 10/20/19 10/20/19 Range/Units 07:30 07:30 07:30 WBC 18.6 H (3.8-10.6) k/uL RBC 5.44 (4.30-5.90) m/uL Hgb 18.0 H (13.0-17.5) gm/dL Hct 53.0 (39.0-53.0) % MCV 97.4 (80.0-100.0) fL MCH 33.0 (25.0-35.0) pg MCHC 33.9 (31.0-37.0) g/dL RDW 13.1 (11.5-15.5) % Plt Count 227 (150-450) k/uL Neutrophils % 83 % Lymphocytes % 10 % Monocytes % 5 % Eosinophils % 1 % Basophils % 0 % Neutrophils # 15.4 H (1.3-7.7) k/uL Lymphocytes # 1.8 (1.0-4.8) k/uL Monocytes # 0.9 (0-1.0) k/uL Eosinophils # 0.2 (0-0.7) k/uL Basophils # 0.1 (0-0.2) k/uL Sodium 138 (137-145) mmol/L Potassium 4.4 (3.5-5.1) mmol/L Chloride 110 H (98-107) mmol/L Carbon Dioxide 20 L (22-30) mmol/L Anion Gap 8 mmol/L BUN 24 H (9-20) mg/dL Creatinine 1.29 H (0.66-1.25) mg/dL Est GFR (CKD-EPI)AfAm 71 (>60 ml/min/1.73 sqM) Est GFR (CKD-EPI)NonAf 62 (>60 ml/min/1.73 sqM) Glucose 159 H (74-99) mg/dL Calcium 11.0 H (8.4-10.2) mg/dL Urine Color Yellow Urine Appearance Clear (Clear) Urine pH 5.5 (5.0-8.0) Ur Specific [place] 1.028 (1.001-1.035) Urine Protein Trace H (Negative) Urine Glucose (UA) Negative (Negative) Urine Ketones Negative (Negative) Urine Blood Small H (Negative) Urine Nitrite Negative (Negative) Urine Bilirubin Negative (Negative) Urine Urobilinogen <2.0 (<2.0) mg/dL Ur Leukocyte Esterase Small H (Negative) Urine RBC 16 H (0-5) /hpf Urine WBC 10 H (0-5) /hpf Ur Squamous Epith Cells <1 (0-4) /hpf Calcium Oxalate Crystal Few H (None) /hpf Urine Mucus Rare H (None) /hpf Disposition Clinical Impression: Kidney stone Disposition: HOME SELF-CARE Condition: Good Instructions (If sedation given, give patient instructions): Urinary Tract Infection in Men (ED), Kidney Stones (ED) Additional Instructions: Please seek medical attention with any recurrence of symptoms, fever or chills or night sweats. Please do best to follow-up with Urology considering her insurance status. Prescriptions: Tamsulosin HCl [Flomax] 0.4 mg PO DAILY 5 Days #5 capsule Cephalexin [Keflex] 500 mg PO Q6HR 5 Days #20 cap HYDROcodone/APAP 5-325MG [Freeborn 5-325] 1 tab PO Q6HR PRN 3 Days #12 tab PRN Reason: Severe Pain Is patient prescribed a controlled substance at d/c from ED?: Yes If prescribed controlled substance>3 days was MAPS reviewed?: Prescribed <3 Days Referrals: Sally Garcia DO [Primary Care Provider] - 1-2 days Time of Disposition: 08:49
[2019-10-20 08:02] LABS: Basophils # (A) 0.1 k/uL (0-0.2); Basophils % (A) 0 %; Eosinophils # (A) 0.2 k/uL (0-0.7); Eosinophils % (A) 1 %; Lymphocytes # (A) 1.8 k/uL (1.0-4.8); Lymphocytes % (A) 10 %; MCHC 33.9 g/dL (31.0-37.0); MCV 97.4 fL (80.0-100.0); Mean Platelet Volume 7.6; Monocytes # (A) 0.9 k/uL (0-1.0); Monocytes % (A) 5 %; Neutrophils # (A) 15.4 k/uL (1.3-7.7); Neutrophils % (A) 83 %; Platelet Count 227 k/uL (150-450); RBC 5.44 m/uL (4.30-5.90); RDW 13.1 % (11.5-15.5); WBC 18.6 k/uL (3.8-10.6)
[2019-10-20 08:06] LABS: Appearance,Urine Clear (Clear); Bilirubin,Urine Negative (Negative); Blood,Urine Small (Negative); Calcium Oxalate Crystals,Urine Few /hpf; Color,Urine Yellow; Glucose,Urine (UA) Negative (Negative); Ketones,Urine Negative (Negative); Leukocyte Esterase,Urine Small (Negative); Mucus,Urine Rare /hpf; Nitrite,Urine Negative (Negative); PH, Urine 5.5 (5.0-8.0); Protein,Urine Trace (Negative); RBC,Urine 16 /hpf (0-5); Specific Gravity,Urine 1.028 (1.001-1.035); Squamous Epithelial Cell,Urine <1 /hpf (0-4); Urobilinogen,Urine <2.0 mg/dL (<2.0); WBC,Urine 10 /hpf (0-5)
[2019-10-20 08:24] LABS: Potassium 4.4 mmol/L (3.5-5.1)
[2019-10-20 08:36] VITALS: BP 155/85; PULSE 78
--- NOTE | 2019-10-20 08:36 | US ---
EXAMINATION TYPE: US kidneys/renal and bladder DATE OF EXAM: 10/20/2019 COMPARISON: CT scan dated 09/29/2019. CLINICAL HISTORY: kidney stone. hx renal stones, right side pain, patient voided before exam EXAM MEASUREMENTS: Right Kidney: 13.7 x 5.4 x 6.1 cm Left Kidney: 12.8 x 4.6 x 5.0 cm Right Kidney: mild hydronephrosis. Lower pole echogenic foci, largest - 0.8 mm Left Kidney: No hydronephrosis or masses seen Bladder: nondistended. Possible echogenic focus at distal ureter/bladder junction = 0.6 mm Bilateral Jets not seen There is mild fullness of the right renal collecting system without gross hydronephrosis. Echogenic f ocus within the lower pole of the right kidney does not shadow and may represent an angiomyolipoma. T he left kidney is unremarkable. The bladder is not distended. There is an echogenic focus near the tr igone of the bladder. Again, this does not demonstrate shadowing. Neither ureteral jet was visualized . IMPRESSION: NONCONCLUSIVE RENAL ULTRASOUND WITHOUT GROSS SIDED RIGHT HYDRONEPHROSIS AND QUESTIONABLE STONE IN THE LOWER POLE OF THE RIGHT KIDNEY WELL THE BLADDER. REPEAT CT SCAN WITHOUT CONTRAST MAY BE WORTHW HILE IF MORE INFORMATION IS DESIRED.
== END 2019-10-20 08:50 | disposition home or self-care (01) ==
LOC: EC 07:10
DX: N20.0 Calculus of kidney (principal); I10 Essential (primary) hypertension; F17.200 Nicotine dependence, unspecified, uncomplicated; Z90.49 Acquired absence of other specified parts of digestive tract; Z79.82 Long term (current) use of aspirin; Z79.899 Other long term (current) drug therapy
CPT/HCPCS: 36415; 80048; 85025; 81001; 76770; 99284; 96374; 96375; 96361; J2270; J1885

== ENCOUNTER → 2020-11-24 | Outpatient (CLI) | payer OTHER ==
[~2020-11-24] MED LIST: REGADENOSON 0.4 MG/5 ML SYRINGE IV PRN
--- NOTE | 2020-11-24 13:02 | NM ---
EXAMINATION TYPE: NM stress lexiscan cardiolite DATE OF EXAM: 11/24/2020 COMPARISON: NONE HISTORY: 55 year old male with abnormal EKG TECHNIQUE: After the intravenous administration of 10 mCi Tc 99m Sestamibi - Cardiolite resting SPEC T images acquired 45 minutes post injection. The patient received 0.4mg Lexiscan, 25.2 mCi Tc 99m Sestamibi - Stress images obtained 0950 minutes post injection FINDINGS: Review of stress and rest SPECT images demonstrates decreased perfusion along the inferior wall on [place] th rest and stress SPECT images. On the stress images, there may be some decrease in perfusion along the inferior apex. Gated analysis shows decreased activity along the inferior wall with an estimated left ventricular ejection fraction of 55 %, borderline. TID is calculated at 1.23, abnormally elevat ed. IMPRESSION: 1. Decreased activity along the inferior wall could be prominent diaphragmatic attenuation or a large area of old inferior wall infarct. Clinically correlate. 2. Unable to exclude a small area of herson-infarct ischemia along the apical inferior wall. 3. In addition, TID is abnormally elevated at 1.23. This can be seen in the setting of multivessel, b alanced inducible ischemia. Further workup can be performed. 4. Estimated LVEF borderline at 55%
--- NOTE | 2020-11-24 14:41 | EST ---
EXERCISE STRESS AGE: 55 SEX: M HT: 6" WT: 317 lbs PROTOCOL: Lexiscan STAGE: N/A DURATION OF EXERCISE: N/A HEART RATE REST: 73 BLOOD PRESSURE REST: 140/85 MAXIMUM HEART RATE ACHIEVED: 102 MAXIMUM BLOOD PRESSURE: 140/85 85% MPHR: 139 100% MPHR: 163 METS: N/A STRESS DATA: Pretesting physical examination showed a heart rate of 73, pressure is 140/85 mmHg. 0.4 mg of Lexiscan over 15 seconds per protocol. Max heart rate was 102 beats per minute. Maximum pressure was 140/85 mmHg. Clinically, the patient did not have any symptoms of chest pain or chest discomfort. The EKG did not show any significant ST or T-wave abnormalities concerning for ischemia. CONCLUSION: 1. Nondiagnostic electrocardiogram stress testing in response to Lexiscan. 2. Please follow up on the Cardiolite portion on separate report from Radiology. MMODL / IJN: [id number] /
== END | disposition home or self-care (01) ==
LOC: RADNMMAIN 07:35
PROVIDERS: ATTEND Family Medicine
DX: R94.31 Abnormal electrocardiogram [ECG] [EKG] (principal)
CPT/HCPCS: 93017; 78452; A9500; J2785

== ENCOUNTER 2021-01-05 06:16 | Day surgery (SDC) | payer OTHER ==
[2020-12-25 15:01] VITALS: BMI 42.3
[~2021-01-05 06:16] MED LIST changes: +ALPRAZolam 0.25 MG TAB PO PRN; +ALPRAZolam 0.5 MG TAB PO PRN; +ASPIRIN 325 MG TAB PO STA; +ATORVASTATIN 80 MG TAB PO STA; +HEPARIN SODIUM,PORCINE 10,000 UNIT in SODIUM CHLORIDE 0.9% 1,000 ML IRRIGATION PRN; +HEPARIN SODIUM,PORCINE 2,500 UNIT in SODIUM CHLORIDE 0.9% 250 ML IRRIGATION PRN; +NITROGLYCERIN SL TABS 0.4 MG TAB SUBLINGUAL PRN; -REGADENOSON 0.4 MG/5 ML SYRINGE IV PRN; +SODIUM CHLORIDE 0.9% 1,000 ML in EMPTY BAG 1 BAG IV ONE
[2021-01-05 07:02] VITALS: RESP 16; TEMP 98
[2021-01-05 07:06] LABS: Basophils # (A) 0.1 k/uL (0-0.2); Basophils % (A) 1 %; Eosinophils # (A) 0.3 k/uL (0-0.7); Eosinophils % (A) 2 %; HCT 54.4 % (39.0-53.0); HGB 18.8 gm/dL (13.0-17.5); Lymphocytes # (A) 2.2 k/uL (1.0-4.8); Lymphocytes % (A) 16 %; MCHC 34.5 g/dL (31.0-37.0); MCV 95.5 fL (80.0-100.0); Mean Platelet Volume 7.1; Monocytes # (A) 0.8 k/uL (0-1.0); Monocytes % (A) 6 %; Neutrophils # (A) 10.5 k/uL (1.3-7.7); Neutrophils % (A) 75 %; Platelet Count 216 k/uL (150-450); RBC 5.69 m/uL (4.30-5.90); RDW 12.9 % (11.5-15.5)
[2021-01-05 07:07] LABS: Glucose,Whole Blood 150 mg/dL (75-99)
[2021-01-05] MEDS ORDERED: VERAPAMIL 2.5 MG/ML 2 ML AMP ONE (11:40)
[2021-01-05] MEDS ORDERED: fentaNYL (PF) 50 MCG/ML 2 ML AMP ONE (11:41)
[2021-01-05] MEDS ORDERED: LIDOCAINE 1% INJ 10MG/ML (20 ML MDV) ONE (11:41)
[2021-01-05] MEDS ORDERED: HEPARIN SODIUM 1,000 UN/ML (10ML VL) ONE (11:59)
[2021-01-05] MEDS ORDERED: IV FLUID CONTINUATION 1,000 ML IV ONE (12:00)
[2021-01-05] MEDS ORDERED: fentaNYL (PF) 50 MCG/ML 2 ML AMP IV ONE (12:06)
[2021-01-05] MEDS ORDERED: MIDAZOLAM 2 MG/2 ML VIAL IV ONE (12:07)
[2021-01-05] MEDS ORDERED: LIDOCAINE 1% INJ 10MG/ML (20 ML MDV) SQ ONE (12:11)
[2021-01-05] MEDS ORDERED: VERAPAMIL SYRINGE (5 MG/10 ML) INTRAARTER ONE (12:15)
[2021-01-05] MEDS ORDERED: HEPARIN SODIUM 1,000 UN/ML (10ML VL) IV ONE (12:19)
[2021-01-05] MEDS ORDERED: SODIUM CHLORIDE 0.9% 1,000 ML IV SCH (12:30)
[2021-01-05] MEDS ORDERED: RX INFO: IV CONTRAST WAS GIVEN 1 EACH MISC MISCELLANE PRN (12:30)
[2021-01-05] MEDS ORDERED: IOPAMIDOL-370 125ML BTL INJ ONE (12:34)
[2021-01-05 17:15] VITALS: BP 141/72; PULSE 69
--- NOTE | 2021-01-06 08:12 | P.CARDCATH ---
Date of Procedure: 01/05/21 Preoperative Diagnosis: Abnormal stress test, rule out coronary artery disease Postoperative Diagnosis: Normal coronary arteries Procedure(s) Performed: Left heart catheterization without left ventriculography Description of Procedure: HISTORY: This is a 55-year-old gentleman with history of hypertension, hypercholesteremia, and diabetes who was evaluated by stress test recently which showed ischemic changes in the inferior wall area. Patient is advised to have a cardiac catheterization for definitive diagnosis. Patient and family were explained the risks and benefits of the procedure CONSENT:I have discussed the risks, benefits and alternative therapies for the above-mentioned procedure and for both sedation/analgesia as well as necessary blood product administration, if indicated, as they pertain to this patient. The patient has indicated understanding and acceptance of the risks and procedures discussed. PROCEDURE: Patient was brought to the lab in a fasting state. Patient was given some IV sedation. The right wrist is infiltrated with lidocaine and right radial artery was entered using Seldinger technique. A 6-Lux[place]bourg[place] catheter was left in place and selective coronary arteriography was performed. Patient tolerated the procedure well. TR band was applied for hemostasis. No immediate complications were noted and patient was transferred to [facility] in a stable condition Conscious Sedation: Versed 1mg Fentanyl 50 g Duration 21minutes HEMODYNAMICS: The aortic pressure is about 120/70. Left ventricle end-diastolic pressure was not measured SELECTIVE CORONARY ARTERIOGRAPHY: LEFT MAIN: Large caliber vessel free of occlusive disease THE LEFT ANTERIOR DESCENDING CORONARY ARTERY: . This is a good caliber vessel giving rise to good-sized diagonal branch. Free of any occlusive disease THE LEFT CIRCUMFLEX AND IS CORONARY ARTERY: . This is a good caliber vessel. Free of occlusive disease THE RIGHT CORONARY ARTERY: . This a good caliber vessel and codominant and free of any occlusive disease LEFT VENTRICULOGRAPHY: . Not performed FINAL IMPRESSION: Normal coronary arteries PLAN: Maximum medical therapy and risk factor modification PROGNOSIS: Good
== END 2021-01-05 16:40 | disposition home or self-care (01) ==
LOC: CATHCVL 06:16
PROVIDERS: ATTEND Internal Medicine Cardiovascular Disease
DX: R94.39 Abnormal result of other cardiovascular function study (principal); I10 Essential (primary) hypertension; E78.00 Pure hypercholesterolemia, unspecified; E11.9 Type 2 diabetes mellitus without complications; F17.210 Nicotine dependence, cigarettes, uncomplicated; E66.01 Morbid (severe) obesity due to excess calories; Z79.899 Other long term (current) drug therapy; Z79.84 Long term (current) use of oral hypoglycemic drugs
CPT/HCPCS: 93454; 85025; C1894; J2250; J2001; J3010; J1644; Q9967

== ENCOUNTER 2023-09-03 09:48 | Emergency (ER) | payer OTHER ==
[2023-09-03 09:59] LABS: Glucose,Whole Blood 470 mg/dL (70-110)
[2023-09-03 10:25] VITALS: TEMP 98
[2023-09-03] MEDS: INSULIN REGULAR 100 UNIT/ML VIAL (IV) IV ONE ×2 (10:29→12:09)
[2023-09-03] MEDS: SODIUM CHLORIDE 0.9% 2,000 ML IV STA (10:31)
--- NOTE | 2023-09-03 11:20 | XR ---
EXAMINATION TYPE: XR cervical spine comp DATE OF EXAM: 09/03/2023 11:03 AM CLINICAL INDICATION:Male, 58 years old with history of pain; [facility] COMPARISON: None TECHNIQUE: The cervical spine was imaged in frontal, lateral, odontoid and bilateral oblique. FINDINGS: The osseous structures show normal alignment without evidence of an acute fracture. Mild to moderate degenerative disc disease evidenced by disc space narrowing at each level, moderate predominantly ant erior marginal osteophytes at the C3-C4, C4-C5, C5-C6 levels. Mild facet arthrosis throughout. There seems to be mild to moderate osseous neural foraminal stenosis at C3-C4 on the right and moderate maria eugenia nosis on the left. Pedicles are intact. Soft tissues are within normal limits. The odontoid appears intact. IMPRESSION: 1. No plain film evidence of fracture or malalignment. 2. Moderate cervical spondylosis.
[2023-09-03 11:22] LABS: ALT 43 U/L (4-49); AST 23 U/L (17-59); African American GFR (CKD) 74 (>60 ml/min/1.73 sqM); Albumin 4.1 g/dL (3.5-5.0); Alkaline Phosphatase 139 U/L (38-126); Anion Gap 9 mmol/L; Blood Urea Nitrogen 43 mg/dL (9-20); Carbon Dioxide 19 mmol/L (22-30); Chloride 104 mmol/L (98-107); Glucose 445 mg/dL (74-99); Lipase 255 U/L (23-300); Magnesium 1.8 mg/dL (1.6-2.3); Non-African American GFR(CKD) 64 (>60 ml/min/1.73 sqM); Potassium 5.3 mmol/L (3.5-5.1); Sodium 132 mmol/L (137-145); Total Protein 6.7 g/dL (6.3-8.2)
--- NOTE | 2023-09-03 11:25 | ED ---
General Adult HPI - General Chief complaint: Recheck/Abnormal Lab/Rx Stated complaint: High Sugar levels, 400+ Time Seen by Provider: 09/03/23 09:53 Source: patient, RN notes reviewed Mode of arrival: ambulatory Limitations: no limitations - History of Present Illness Initial comments: 58-year-old male presents emergency department chief complaint of elevated blood sugar. Patient states that he is a known diabetic he states he is currently on metformin 500 twice daily. He states he used to be on insulin but states that he lost a large amount of weight and was able to stop this. He states that recently he has been placed on steroids for his neck, pain radiating down his right arm. Patient states that he just has not felt well he is very fatigued he states he finally picked up some testing strips and was found to have blood sugar over 400 states he actually was over 500 at 1 point. He denies any nausea vomit diarrhea constipation no fevers or chills. Denies dysuria besides his urinary frequency - Related Data Home Medications Medication Instructions Recorded Confirmed Aspirin [Adult Low Dose Aspirin EC] 81 mg PO W/SUPPER 03/31/18 01/05/21 Atorvastatin [Lipitor] 40 mg PO W/SUPPER 12/26/20 01/05/21 Metoprolol Succinate (ER) [Toprol 25 mg PO W/SUPPER 12/26/20 01/05/21 Xl] lisinopriL [Prinivil] 20 mg PO W/SUPPER 12/26/20 01/05/21 metFORMIN HCL [Glucophage] 500 mg PO W/SUPPER 12/26/20 01/05/21 Previous Rx's Medication Instructions Recorded metFORMIN HCL 1,000 mg PO BID #30 tablet 09/03/23 Allergies Allergy/AdvReac Type Severity Reaction Status Date / Time No Known Allergies Allergy Verified 09/03/23 10:01 Review of Systems ROS Statement: Those systems with pertinent positive or pertinent negative responses have been documented in the HPI. ROS Other: All systems not noted in ROS Statement are negative. Past Medical History Past Medical History: Diabetes Mellitus, Hypertension, Osteoarthritis (OA), Renal Disease Additional Past Medical History / Comment(s): kidney stones, aortic aneurysm found in 2022 History of Any Multi-Drug Resistant Organisms: None Reported Past Surgical History: Cholecystectomy Past Anesthesia/Blood Transfusion Reactions: No Reported Reaction Past Psychological History: Depression Smoking Status: Current every day smoker Past Alcohol Use History: Occasional Past Drug Use History: Marijuana - Past Family History Mother Family Medical History: No Reported History General Exam Limitations: no limitations General appearance: alert, in no apparent distress Head exam: Present: atraumatic, normocephalic, normal inspection Eye exam: Present: normal appearance, PERRL, EOMI. Absent: scleral icterus, conjunctival injection, periorbital swelling ENT exam: Present: normal exam, mucous membranes moist Neck exam: Present: normal inspection, tenderness, full ROM. Absent: meningismus, lymphadenopathy Respiratory exam: Present: normal lung sounds bilaterally. Absent: respiratory distress, wheezes, rales, rhonchi, stridor Cardiovascular Exam: Present: normal rhythm, tachycardia GI/Abdominal exam: Present: soft, normal bowel sounds. Absent: distended, tenderness, guarding, rebound, rigid Extremities exam: Present: normal inspection, full ROM, normal capillary refill. Absent: tenderness, pedal edema, joint swelling, calf tenderness Course Vital Signs 09/03/23 09/03/23 09/03/23 09:58 12:44 13:51 Temperature 98 F Pulse Rate 112 H 91 91 Respiratory 18 16 18 Rate Blood Pressure 143/80 107/77 126/88 O2 Sat by Pulse 98 98 97 Oximetry Medical Decision Making - Medical Decision Making Was pt. sent in by a medical professional or institution (DEMI Nair, PROPOSAL DEVELOPMENT MANAGER, urgent care, hospital, or intermediate...) When possible be specific @ -No Did you speak to anyone other than the patient for history (EMS, parent, family, police, friend...)? What history was obtained from this source @ -No Did you review nursing and triage notes (agree or disagree)? Why? @ -I reviewed and agree with nursing and triage notes Were old charts reviewed (outside hosp., previous admission, EMS record, old EKG, old radiological studies, urgent care reports/EKG's, intermediate records)? Report findings @ -No old charts were reviewed Differential Diagnosis (chest pain, altered mental status, abdominal pain women, abdominal pain men, vaginal bleeding, weakness, fever, dyspnea, syncope, headache, dizziness, GI bleed, back pain, seizure, CVA, palpatations, mental health, musculoskeletal)? @ -[Differential Abdominal Pain Men: Appendicitis, cholecystitis, diverticulosis, ischemic bowel, pancreatitis, hepatitis, UTI, gastroenteritis, AAA, incarcerated hernia, bowel obstruction, constipation, inflammatory bowel, hepatitis, peptic ulcer disease, splenic infarction, perforated viscus, testicular torsion, this is not meant to be an all-inclusive list EKG interpreted by me (3pts min.). @ -None X-rays interpreted by me (1pt min.). @ -X-ray cervical spine showing degenerative changes CT interpreted by me (1pt min.). @ -[None done U/S interpreted by me (1pt. min.). @ -None done What testing was considered but not performed or refused? (CT, X-rays, U/S, labs)? Why? @ -None What meds were considered but not given or refused? Why? @ -None Did you discuss the management of the patient with other professionals (professionals i.e. , PA, PROPOSAL DEVELOPMENT MANAGER, lab, RT, psych nurse, social worker clinical, insurance coordinator, teacher, legal officer, keycase assembler)? Give summary @ -No Was smoking cessation discussed for >3mins.? @ -No Was critical care preformed (if so, how long)? @ -No Were there social determinants of health that impacted care today? How? (Homelessness, low income, unemployed, alcoholism, drug addiction, transportation, low edu. Level, literacy, decrease access to med. care, [facility], rehab)? @ -No Was there de-escalation of care discussed even if they declined (Discuss DNR or withdrawal of care, Hospice)? DNR status @ -No What co-morbidities impacted this encounter? (DM, HTN, Smoking, COPD, CAD, Cancer, CVA, ARF, Chemo, Hep., AIDS, mental health diagnosis, sleep apnea, morbid obesity)? @ -[Diabetes Was patient admitted / discharged? Hospital course, mention meds given and route, prescriptions, significant lab abnormalities, going to OR and other pertinent info. @ -Discharge patient to a full set of labs patient found to have moderate hyperglycemia. Patient was given insulin. Blood sugar has been elevated related to his steroid use. Patient will increase his metformin to 1000 mg twice daily he will follow-up with his PCP for further medications and return plans discussed. Undiagnosed new problem with uncertain prognosis? @ -No Drug Therapy requiring intensive monitoring for toxicity (Heparin, Nitro, Insulin, Cardizem)? @ -No Were any procedures done? @ -No Diagnosis/symptom? @ -Hyperglycemia Acute, or Chronic, or Acute on Chronic? @ -Acute Uncomplicated (without systemic symptoms) or Complicated (systemic symptoms)? @ -Uncomplicated Side effects of treatment? @ -No Exacerbation, Progression, or Severe Exacerbation? @ -No Poses a threat to life or bodily function? How? (Chest pain, [place], [place], pneumonia, PE, COPD, DKA, ARF, appy, cholecystitis, CVA, Diverticulitis, Homicidal, Suicidal, threat to staff... and all critical care pts) @ -No - Lab Data Result diagrams: 09/03/23 10:19 09/03/23 10:19 Lab Results 09/03/23 09/03/23 09/03/23 Range/Units 09:57 10:19 10:19 WBC 16.5 H (3.8-10.6) k/uL RBC 5.50 (4.30-5.90) m/uL Hgb 17.6 H (13.0-17.5) gm/dL Hct 53.4 H (39.0-53.0) % MCV 97.0 (80.0-100.0) fL MCH 32.0 (25.0-35.0) pg MCHC 33.0 (31.0-37.0) g/dL RDW 13.0 (11.5-15.5) % Plt Count 217 (150-450) k/uL MPV 9.5 Neutrophils % 75 % Lymphocytes % 18 % Monocytes % 5 % Eosinophils % 1 % Basophils % 0 % Neutrophils # 12.4 H (1.3-7.7) k/uL Lymphocytes # 3.0 (1.0-4.8) k/uL Monocytes # 0.8 (0-1.0) k/uL Eosinophils # 0.1 (0-0.7) k/uL Basophils # 0.1 (0-0.2) k/uL Sodium (137-145) mmol/L Potassium (3.5-5.1) mmol/L Chloride (98-107) mmol/L Carbon Dioxide (22-30) mmol/L Anion Gap mmol/L BUN (9-20) mg/dL Creatinine (0.66-1.25) mg/dL Est GFR (CKD-EPI)AfAm (>60 ml/min/1.73 sqM) Est GFR (CKD-EPI)NonAf (>60 ml/min/1.73 sqM) Glucose (74-99) mg/dL POC Glucose (mg/dL) 470 H (70-110) mg/dL POC Glu Pathology Transcriptionist ID Bryan John Calcium (8.4-10.2) mg/dL Magnesium (1.6-2.3) mg/dL Total Bilirubin (0.2-1.3) mg/dL AST (17-59) U/L ALT (4-49) U/L Alkaline Phosphatase (38-126) U/L Total Protein (6.3-8.2) g/dL Albumin (3.5-5.0) g/dL Lipase (23-300) U/L Urine Color Light Yellow Urine Appearance Clear (Clear) Urine pH 5.5 (5.0-8.0) Ur Specific [place] 1.031 (1.001-1.035) Urine Protein Trace H (Negative) Urine Glucose (UA) 4+ H (Negative) Urine Ketones Trace H (Negative) Urine Blood Negative (Negative) Urine Nitrite Negative (Negative) Urine Bilirubin Negative (Negative) Urine Urobilinogen <2.0 (<2.0) mg/dL Ur Leukocyte Esterase Negative (Negative) Acetone, Qual (Negative) 09/03/23 09/03/23 09/03/23 Range/Units 10:19 11:54 13:04 WBC (3.8-10.6) k/uL RBC (4.30-5.90) m/uL Hgb (13.0-17.5) gm/dL Hct (39.0-53.0) % MCV (80.0-100.0) fL MCH (25.0-35.0) pg MCHC (31.0-37.0) g/dL RDW (11.5-15.5) % Plt Count (150-450) k/uL MPV Neutrophils % % Lymphocytes % % Monocytes % % Eosinophils % % Basophils % % Neutrophils # (1.3-7.7) k/uL Lymphocytes # (1.0-4.8) k/uL Monocytes # (0-1.0) k/uL Eosinophils # (0-0.7) k/uL Basophils # (0-0.2) k/uL Sodium 132 L (137-145) mmol/L Potassium 5.3 H (3.5-5.1) mmol/L Chloride 104 (98-107) mmol/L Carbon Dioxide 19 L (22-30) mmol/L Anion Gap 9 mmol/L BUN 43 H (9-20) mg/dL Creatinine 1.22 (0.66-1.25) mg/dL Est GFR (CKD-EPI)AfAm 74 (>60 ml/min/1.73 sqM) Est GFR (CKD-EPI)NonAf 64 (>60 ml/min/1.73 sqM) Glucose 445 H (74-99) mg/dL POC Glucose (mg/dL) 385 H 256 H (70-110) mg/dL POC Glu Pathology Transcriptionist Shital Urias Danielle Calcium 12.0 H (8.4-10.2) mg/dL Magnesium 1.8 (1.6-2.3) mg/dL Total Bilirubin 1.0 (0.2-1.3) mg/dL AST 23 (17-59) U/L ALT 43 (4-49) U/L Alkaline Phosphatase 139 H (38-126) U/L Total Protein 6.7 (6.3-8.2) g/dL Albumin 4.1 (3.5-5.0) g/dL Lipase 255 (23-300) U/L Urine Color Urine Appearance (Clear) Urine pH (5.0-8.0) Ur Specific [place] (1.001-1.035) Urine Protein (Negative) Urine Glucose (UA) (Negative) Urine Ketones (Negative) Urine Blood (Negative) Urine Nitrite (Negative) Urine Bilirubin (Negative) Urine Urobilinogen (<2.0) mg/dL Ur Leukocyte Esterase (Negative) Acetone, Qual Negative (Negative) Disposition Clinical Impression: Hyperglycemia Disposition: HOME SELF-CARE Condition: Stable Instructions (If sedation given, give patient instructions): Diabetic Hyperglycemia (ED) Additional Instructions: Please return to the Emergency Department if symptoms worsen or any other co ncerns. Prescriptions: metFORMIN HCL 1,000 mg PO BID #30 tablet Is patient prescribed a controlled substance at d/c from ED?: No Referrals: Sally Garcia DO [Primary Care Provider] - 1-2 days Time of Disposition: 13:09
[2023-09-03 11:30] LABS: Appearance,Urine Clear (Clear); Basophils # (A) 0.1 k/uL (0-0.2); Basophils % (A) 0 %; Bilirubin,Urine Negative (Negative); Blood,Urine Negative (Negative); Color,Urine Light Yellow; Eosinophils # (A) 0.1 k/uL (0-0.7); Eosinophils % (A) 1 %; Glucose,Urine (UA) 4+ (Negative); HCT 53.4 % (39.0-53.0); HGB 17.6 gm/dL (13.0-17.5); Ketones,Urine Trace (Negative); Leukocyte Esterase,Urine Negative (Negative); Lymphocytes % (A) 18 %; Mean Platelet Volume 9.5; Monocytes # (A) 0.8 k/uL (0-1.0); Monocytes % (A) 5 %; Neutrophils # (A) 12.4 k/uL (1.3-7.7); Neutrophils % (A) 75 %; Nitrite,Urine Negative (Negative); PH, Urine 5.5 (5.0-8.0); Platelet Count 217 k/uL (150-450); Protein,Urine Trace (Negative); Specific Gravity,Urine 1.031 (1.001-1.035); Urobilinogen,Urine <2.0 mg/dL (<2.0); WBC 16.5 k/uL (3.8-10.6)
[2023-09-03 11:56] LABS: Glucose,Whole Blood 385 mg/dL (70-110)
[2023-09-03 13:07] VITALS: PULSE 91
[2023-09-03 13:07] LABS: Glucose,Whole Blood 256 mg/dL (70-110)
[2023-09-03] MEDS: ACET/COD 300 MG/30 MG STARTER PACK 6 TAB BTL PO STA (13:50)
[2023-09-03 14:12] VITALS: BP 126/88; RESP 18
== END 2023-09-03 13:52 | disposition home or self-care (01) ==
LOC: EC 09:48
DX: E11.65 Type 2 diabetes mellitus with hyperglycemia (principal); R00.0 Tachycardia, unspecified; F17.200 Nicotine dependence, unspecified, uncomplicated; Z79.84 Long term (current) use of oral hypoglycemic drugs
CPT/HCPCS: 36415; 72050; 80053; 81003; 82009; 83690; 83735; 85025; 96360; 96361; 99285

== ENCOUNTER 2023-10-14 16:41 | Observation (INO) | payer OTHER ==
--- NOTE | 2023-10-14 17:04 | ED ---
Recheck HPI - General Source: RN notes reviewed <Terrie Cook - Last Filed: 10/14/23 17:01> - General Source: patient Limitations: no limitations - History of Present Illness MD Complaint: other -: hour(s) Returns Today for: Called Because of Abnormal Lab/Test Symptoms Since Prior Visit: no new symptoms Associated Symptoms: other (fatigue) <Rush Barber - Last Filed: 10/31/23 06:11> - General Stated Complaint: Abnormal Labs-sent from Dr Time Seen by Provider: 10/14/23 16:45 - History of Present Illness Initial Comments: quick [id number] male who is a current tobacco smoker sent by PCP due to concerning findings on CT scan earlier today. Patient states he has routine CT scans to monitor his abdominal aortic aneurysm and today he was sent straight to the ER due to bilateral blood clots in his lungs. Denies cough or chest pain but admits he has been fatigued for the past couple of months. (Terrie Cook) This patient is a 58-year-old man who was directed to come to the emergency department from outpatient radiology. The patient had gone to have a CT of the chest with contrast to have scheduled follow-up related to thoracic aneurysm. The patient received a call telling him that he had of PE served on the study. Patient states he has had between 1 and 2 months of poor exercise tolerance and some fatigue. He states that at the start of that. He noted he had some right foot pain. Patient currently denies chest pain, dyspnea. (Rush Barber) - Related Data Home Medications Medication Instructions Recorded Confirmed Aspirin [Adult Low Dose Aspirin EC] 81 mg PO DAILY 03/31/18 10/15/23 Atorvastatin [Lipitor] 40 mg PO W/SUPPER 12/26/20 10/15/23 Metoprolol Succinate (ER) [Toprol 25 mg PO DAILY PRN 12/26/20 10/15/23 XL] lisinopriL [Prinivil] 20 mg PO W/SUPPER 12/26/20 10/15/23 Dulaglutide [Trulicity] 1.5 mg SQ SA 10/15/23 10/15/23 HYDROcodone/APAP 5-325MG [[place] 1 tab PO BID PRN 10/15/23 10/15/23 5-325] Venlafaxine HCl [Effexor XR] 75 mg PO W/SUPPER 10/15/23 10/15/23 metFORMIN HCL 1,000 mg PO BID 10/15/23 10/15/23 Previous Rx's Medication Instructions Recorded Apixaban [Eliquis Starter Pack 5 - 10 mg PO DIRECTED 30 Days 10/16/23 (for VTE)] #1 each Allergies Allergy/AdvReac Type Severity Reaction Status Date / Time No Known Allergies Allergy Verified 10/15/23 09:35 Review of Systems ROS Other: All systems not noted in ROS Statement are negative. <CookTerrie - Last Filed: 10/14/23 17:01> ROS Other: All systems not noted in ROS Statement are negative. Constitutional: Denies: fever, chills, weakness Respiratory: Denies: cough, dyspnea, wheezes, hemoptysis Cardiovascular: Denies: chest pain, palpitations, orthopnea, edema, syncope Gastrointestinal: Denies: abdominal pain, nausea, vomiting, diarrhea Genitourinary: Denies: dysuria, hematuria Musculoskeletal: Denies: back pain Skin: Denies: rash Neurological: Denies: headache, weakness, numbness <Rush Barber - Last Filed: 10/31/23 06:11> ROS Statement: Those systems with pertinent positive or pertinent negative responses have been documented in the HPI. Past Medical History Past Medical History: Diabetes Mellitus, Hypertension, Osteoarthritis (OA), Renal Disease Additional Past Medical History / Comment(s): kidney stones, aortic aneurysm found in 2022 History of Any Multi-Drug Resistant Organisms: None Reported Past Surgical History: Cholecystectomy Past Anesthesia/Blood Transfusion Reactions: No Reported Reaction Past Psychological History: Depression Smoking Status: Current every day smoker Past Alcohol Use History: Occasional Past Drug Use History: Marijuana - Past Family History Mother Family Medical History: No Reported History <JoeyTerrie - Last Filed: 10/14/23 17:01> General Exam <CookTerrie - Last Filed: 10/14/23 17:01> General appearance: alert, in no apparent distress Head exam: Present: atraumatic, normocephalic Eye exam: Present: normal appearance. Absent: scleral icterus, conjunctival injection Neck exam: Present: normal inspection Respiratory exam: Present: normal lung sounds bilaterally. Absent: respiratory distress, wheezes, rales, rhonchi, stridor, accessory muscle use Cardiovascular Exam: Present: regular rate, normal rhythm, normal heart sounds. Absent: systolic murmur, diastolic murmur, rubs, gallop GI/Abdominal exam: Present: soft. Absent: distended, tenderness, guarding, rebound, rigid, mass Extremities exam: Present: normal inspection, normal capillary refill, pedal edema (There is right leg edema versus left. No Homans' sign). Absent: calf tenderness Back exam: Present: normal inspection. Absent: CVA tenderness (R), CVA tenderness (L) Neurological exam: Present: alert Skin exam: Present: warm, dry, intact, normal color. Absent: rash <Rush Barber - Last Filed: 10/31/23 06:11> - General Exam Comments Initial Comments: Visual Physical Exam Vital signs reviewed General: Well-appearing, nontoxic, no acute distress. Head: Normocephalic, atraumatic Eyes: PERRLA, EOMI ENT: Airway patent Chest: Nonlabored breathing Skin: No visual rash, normal skin tone Neuro: Alert and oriented 3 Musculoskeletal: No gross abnormalities (Terrie Cook) Course Vital Signs 10/14/23 10/14/23 10/15/23 17:10 23:18 01:00 Temperature 97.6 F Pulse Rate 93 82 84 Respiratory 18 20 18 Rate Blood Pressure 132/78 119/70 124/79 O2 Sat by Pulse 98 97 96 Oximetry 10/15/23 10/15/23 10/15/23 03:00 06:00 08:00 Temperature Pulse Rate 81 56 L 105 H Respiratory 18 18 18 Rate Blood Pressure 108/53 119/86 123/79 O2 Sat by Pulse 97 96 Oximetry 10/15/23 10/15/23 10/15/23 09:08 11:00 13:04 Temperature Pulse Rate 78 98 104 H Respiratory 18 18 18 Rate Blood Pressure 125/78 126/83 103/50 O2 Sat by Pulse 98 97 96 Oximetry 10/15/23 10/15/23 10/15/23 15:01 16:00 18:04 Temperature Pulse Rate 75 67 80 Respiratory 18 18 18 Rate Blood Pressure 126/70 120/76 119/73 O2 Sat by Pulse 96 97 96 Oximetry 10/15/23 10/16/23 10/16/23 20:15 00:09 06:09 Temperature Pulse Rate 72 75 94 Respiratory 18 18 18 Rate Blood Pressure 115/68 124/98 128/91 O2 Sat by Pulse 96 97 96 Oximetry Medical Decision Making <JoeyJaniceTerrie - Last Filed: 10/14/23 17:01> - Lab Data Result diagrams: 10/16/23 05:19 10/16/23 05:19 - EKG Data -: EKG Interpreted by Me EKG shows normal: sinus rhythm, axis (Normal), intervals (Normal), QRS complexes (Low voltage QRS complex), ST-T waves (Normal) Rate: normal (Rate 86 bpm) <Rush Barber - Last Filed: 10/31/23 06:11> - Medical Decision Making I completed the quick note portion of this chart signed Terrie Cook PA-C (Terrie Cook) I reviewed the patient's CT scan and agree there is bilateral pulmonary embolism Was pt. sent in by a medical professional or institution ([facility], [employer], urgent care, hospital, or fci...) When possible be specific @ -[Yes the patient is directed here from outpatient radiology Did you speak to anyone other than the patient for history (EMS, parent, family, police, friend...)? What history was obtained from this source @ -[No] Did you review nursing and triage notes (agree or disagree)? Why? @ -[I reviewed and agree with nursing and triage notes] Were old charts reviewed (outside hosp., previous admission, EMS record, old EKG, old radiological studies, urgent care reports/EKG's, fci records)? Report findings @ -[No old charts were reviewed] Differential Diagnosis (chest pain, altered mental status, abdominal pain women, abdominal pain men, vaginal bleeding, weakness, fever, dyspnea, syncope, headache, dizziness, GI bleed, back pain, seizure, CVA, palpatations, mental hea lth, musculoskeletal)? @ -[Differential Dyspnea: Coronary syndrome, arrhythmia, tamponade, asthma, COPD, pulmonary embolism, pneumonia, pneumothorax, pulmonary effusion, anaphylaxis, diabetic ketoacidosis, flailed chest, pulmonary contusion, diaphragmatic rupture, anemia, neuromuscular, this is not meant to be an all-inclusive list. EKG interpreted by me (3pts min.). @ -[I interpreted as above X-rays interpreted by me (1pt min.). @ -[None done] CT interpreted by me (1pt min.). @ -[I interpreted as above U/S interpreted by me (1pt. min.). @ -[None done] What testing was considered but not performed or refused? (CT, X-rays, U/S, labs)? Why? @ -[None] What meds were considered but not given or refused? Why? @ -[None] Did you discuss the management of the patient with other professionals (professionals i.e. , PA, [employer], lab, RT, psych nurse, social worker psychiatric, family lawyer, teacher, parking enforcement officer, ed case manager)? Give summary @ -[Case discussed with the admitting physician and treatment recommendations are incorporated Was smoking cessation discussed for >3mins.? @ -[No] Was critical care preformed (if so, how long)? @ -[Yes, 30 minutes Were there social determinants of health that impacted care today? How? (Homelessness, low income, unemployed, alcoholism, drug addiction, transpo rtation, low edu. Level, literacy, decrease access to med. care, mcc, rehab)? @ -[No] Was there de-escalation of care discussed even if they declined (Discuss DNR or withdrawal of care, Hospice)? DNR status @ -[No] What co-morbidities impacted this encounter? (DM, HTN, Smoking, COPD, CAD, Cancer, CVA, ARF, Chemo, Hep., AIDS, mental health diagnosis, sleep apnea, morbid obesity)? @ -[Diabetes and hypertension Was patient admitted / discharged? Hospital course, mention meds given and route, prescriptions, significant lab abnormalities, going to OR and other pertinent info. @ -[Patient is a 58-year-old man found to have bilateral pulmonary embolism on an outpatient study. The patient is started on heparin and admitted to have further evaluation and treatment. Suspect the source is from the patient's right leg which does display edema. Undiagnosed new problem with uncertain prognosis? @ -[No] Drug Therapy requiring intensive monitoring for toxicity (Heparin, Nitro, Insulin, Cardizem)? @ -[IV heparin Were any procedures done? @ -[No] Diagnosis/symptom? @ -[Acute bilateral pulmonary embolism Acute, or Chronic, or Acute on Chronic? @ -[Acute Uncomplicated (without systemic symptoms) or Complicated (systemic symptoms)? @ -[Uncomplicated Side effects of treatment? @ -[No] Exacerbation, Progression, or Severe Exacerbation? @ -[No] Poses a threat to life or bodily function? How? (Chest pain, USA, MD, pneumonia, PE, COPD, DKA, ARF, appy, cholecystitis, CVA, Diverticulitis, Homicidal, Suicidal, threat to staff... and all critical care pts) @ -[Yes (Rush Barber) - Lab Data Lab Results 10/14/23 10/14/23 10/14/23 Range/Units 17:45 17:45 17:45 WBC 12.3 H (3.8-10.6) k/uL RBC 4.57 (4.30-5.90) m/uL Hgb 14.9 (13.0-17.5) gm/dL Hct 45.1 (39.0-53.0) % MCV 98.8 (80.0-100.0) fL MCH 32.5 (25.0-35.0) pg MCHC 32.9 (31.0-37.0) g/dL RDW 14.3 (11.5-15.5) % Plt Count 240 (150-450) k/uL MPV 8.1 Neutrophils % 69 % Lymphocytes % 20 % Monocytes % 6 % Eosinophils % 2 % Basophils % 1 % Neutrophils # 8.6 H (1.3-7.7) k/uL Lymphocytes # 2.5 (1.0-4.8) k/uL Monocytes # 0.8 (0-1.0) k/uL Eosinophils # 0.2 (0-0.7) k/uL Basophils # 0.1 (0-0.2) k/uL PT 10.1 (10.0-12.5) sec INR 0.9 (<1.2) APTT 22.4 (22.0-30.0) sec Sodium (137-145) mmol/L Potassium (3.5-5.1) mmol/L Chloride (98-107) mmol/L Carbon Dioxide (22-30) mmol/L Anion Gap mmol/L BUN (9-20) mg/dL Creatinine (0.66-1.25) mg/dL Est GFR (CKD-EPI)AfAm (>60 ml/min/1.73 sqM) Est GFR (CKD-EPI)NonAf (>60 ml/min/1.73 sqM) Glucose (74-99) mg/dL Calcium (8.4-10.2) mg/dL Total Bilirubin (0.2-1.3) mg/dL AST (17-59) U/L ALT (4-49) U/L Alkaline Phosphatase (38-126) U/L Troponin I <0.012 (0.000-0.034) ng/mL NT-Pro-B Natriuret Pep pg/mL Total Protein (6.3-8.2) g/dL Albumin (3.5-5.0) g/dL 10/14/23 Range/Units 17:45 WBC (3.8-10.6) k/uL RBC (4.30-5.90) m/uL Hgb (13.0-17.5) gm/dL Hct (39.0-53.0) % MCV (80.0-100.0) fL MCH (25.0-35.0) pg MCHC (31.0-37.0) g/dL RDW (11.5-15.5) % Plt Count (150-450) k/uL MPV Neutrophils % % Lymphocytes % % Monocytes % % Eosinophils % % Basophils % % Neutrophils # (1.3-7.7) k/uL Lymphocytes # (1.0-4.8) k/uL Monocytes # (0-1.0) k/uL Eosinophils # (0-0.7) k/uL Basophils # (0-0.2) k/uL PT (10.0-12.5) sec INR (<1.2) APTT (22.0-30.0) sec Sodium 142 (137-145) mmol/L Potassium 5.1 (3.5-5.1) mmol/L Chloride 110 H (98-107) mmol/L Carbon Dioxide 19 L (22-30) mmol/L Anion Gap 13 mmol/L BUN 36 H (9-20) mg/dL Creatinine 1.57 H (0.66-1.25) mg/dL Est GFR (CKD-EPI)AfAm 55 (>60 ml/min/1.73 sqM) Est GFR (CKD-EPI)NonAf 47 (>60 ml/min/1.73 sqM) Glucose 103 H (74-99) mg/dL Calcium 11.3 H (8.4-10.2) mg/dL Total Bilirubin 1.2 (0.2-1.3) mg/dL AST 35 (17-59) U/L ALT 43 (4-49) U/L Alkaline Phosphatase 109 (38-126) U/L Troponin I (0.000-0.034) ng/mL NT-Pro-B Natriuret Pep 46 pg/mL Total Protein 7.2 (6.3-8.2) g/dL Albumin 4.6 (3.5-5.0) g/dL Critical Care Time Critical Care Time: Yes (30 minutes) <Rush Barber - Last Filed: 10/31/23 06:11> Disposition <Terrie Cook - Last Filed: 10/14/23 17:01> Is patient prescribed a controlled substance at d/c from ED?: No <Rush Barber - Last Filed: 10/31/23 06:11> Clinical Impression: Pulmonary embolism Disposition: ADMITTED IP TO THIS HOSP Condition: Good
[2023-10-14 17:43] VITALS: TEMP 97.6
[2023-10-14 18:29] LABS: Basophils # (A) 0.1 k/uL (0-0.2); Basophils % (A) 1 %; Eosinophils # (A) 0.2 k/uL (0-0.7); Eosinophils % (A) 2 %; HCT 45.1 % (39.0-53.0); HGB 14.9 gm/dL (13.0-17.5); Lymphocytes # (A) 2.5 k/uL (1.0-4.8); Lymphocytes % (A) 20 %; MCH 32.5 pg (25.0-35.0); MCHC 32.9 g/dL (31.0-37.0); MCV 98.8 fL (80.0-100.0); Mean Platelet Volume 8.1; Monocytes # (A) 0.8 k/uL (0-1.0); Monocytes % (A) 6 %; Neutrophils # (A) 8.6 k/uL (1.3-7.7); Neutrophils % (A) 69 %; Platelet Count 240 k/uL (150-450); RBC 4.57 m/uL (4.30-5.90); RDW 14.3 % (11.5-15.5); WBC 12.3 k/uL (3.8-10.6)
[2023-10-14 18:35] LABS: ALT 43 U/L (4-49); AST 35 U/L (17-59); African American GFR (CKD) 55 (>60 ml/min/1.73 sqM); Albumin 4.6 g/dL (3.5-5.0); Alkaline Phosphatase 109 U/L (38-126); Anion Gap 13 mmol/L; Blood Urea Nitrogen 36 mg/dL (9-20); Calcium 11.3 mg/dL (8.4-10.2); Carbon Dioxide 19 mmol/L (22-30); Chloride 110 mmol/L (98-107); Glucose 103 mg/dL (74-99); Non-African American GFR(CKD) 47 (>60 ml/min/1.73 sqM); Potassium 5.1 mmol/L (3.5-5.1); Sodium 142 mmol/L (137-145); Total Bilirubin 1.2 mg/dL (0.2-1.3); Total Protein 7.2 g/dL (6.3-8.2)
[2023-10-14 18:44] LABS: INR 0.9 (<1.2); NT-Pro-B-Type Natriuretic Pept 46 pg/mL; Partial Thromboplastin Time 22.4 sec (22.0-30.0); Prothrombin Time 10.1 sec (10.0-12.5)
[2023-10-14] MEDS ORDERED: ONDANSETRON 4 MG/2 ML VIAL IVP PRN (22:40)
[2023-10-14] MEDS ORDERED: MORPHINE SULFATE 4 MG/ML SYRINGE IV PRN (22:40)
[2023-10-14] MEDS ORDERED: ACETAMINOPHEN TAB 325 MG TAB PO PRN (22:40)
[2023-10-14] MEDS ORDERED: NALOXONE 0.4 MG/ML 1 ML VIAL IV PRN (22:40)
[2023-10-14] MEDS ORDERED: HYDROcodone/APAP 5-325MG 1 EACH TAB PO PRN (22:40)
[2023-10-14] MEDS ORDERED: MAG HYDROX/AL HYDROX/SIMETH 30 ML CUP PO PRN (22:40)
[2023-10-14] MEDS: SODIUM CHLORIDE 0.9% 1,000 ML IV SCH (23:20)
[2023-10-14] MEDS: HEPARIN SOD,PORK IN 0.45% NACL 25,000 UNIT in 0.45% NACL 1 250ML.BAG IV SCH (23:22)
[2023-10-14] MEDS: HEPARIN SODIUM 1,000 UN/ML (10ML VL) IV ONE (23:24)
[2023-10-14 23:29] LABS: Glucose,Whole Blood 95 mg/dL (70-110)
[2023-10-15 01:27] VITALS: RESP 18
[2023-10-15 06:17] LABS: Basophils # (A) 0.1 k/uL (0-0.2); Basophils % (A) 1 %; Eosinophils # (A) 0.3 k/uL (0-0.7); Eosinophils % (A) 3 %; HCT 39.6 % (39.0-53.0); HGB 12.6 gm/dL (13.0-17.5); Lymphocytes # (A) 2.9 k/uL (1.0-4.8); Lymphocytes % (A) 28 %; MCH 31.9 pg (25.0-35.0); MCHC 31.8 g/dL (31.0-37.0); MCV 100.2 fL (80.0-100.0); Macrocytosis Slight; Monocytes # (A) 0.6 k/uL (0-1.0); Monocytes % (A) 6 %; Neutrophils # (A) 6.1 k/uL (1.3-7.7); Neutrophils % (A) 60 %; Platelet Count 212 k/uL (150-450); RBC 3.95 m/uL (4.30-5.90); RDW 14.3 % (11.5-15.5); WBC 10.2 k/uL (3.8-10.6)
[2023-10-15] MEDS: FAMOTIDINE 20 MG TAB PO SCH (09:06)
[2023-10-15] MEDS ORDERED: METOPROLOL SUCCINATE (ER) 25 MG TAB.ER.24H PO PRN (09:59)
[2023-10-15] MEDS ORDERED: DEXTROSE 50% SYRINGE 50 ML IVP PRN ×2 (10:01)
[2023-10-15] MEDS ORDERED: MORPHINE SULFATE 2 MG/ML SYRINGE IV PRN (10:02)
[2023-10-15] MEDS: ASPIRIN 81 MG PO SCH (10:29)
[2023-10-15] MEDS: NON FORMULARY DRUG (Dulaglutide [Trulicity] 1.5 MG/0.5 ML Each) SQ SCH (10:33)
[2023-10-15 11:14] LABS: Glucose,Whole Blood 161 mg/dL (70-110)
--- NOTE | 2023-10-15 12:50 | P.HPIM ---
History of Present Illness H&P Date: 10/15/23 Chief Complaint: Abnormal CT chest * 58-year-old patient with past medical history significant for diabetes mellitus, hypertension, history of aortic aneurysm, osteoarthritis, presents to the emergency department sent in by primary care provider after patient was noted to have abnormal CT chest. Patient had outpatient CT chest done for follow-up on aortic aneurysm which showed bilateral pulmonary emboli, mild emphysematous changes, 4 cm aneurysm dilatation of ascending thoracic aorta, * Workup in ER included CBC which showed WBC of 12.3 hemoglobin 14.9 platelet count of 240 * INR of 0.9, PT of 10.1 PTT of 22.4 * Serum chemistry showed sodium 142 potassium 5.1 chloride 110 BUN 36 creatinine 1.57 glucose 103 calcium of 11.3 * Patient was started on IV heparin drip and admitted to medical floor with consultations from pulmonary medicine * Cost inquiry for Adalgisaquis initiated REVIEW OF SYSTEMS: CONSTITUTIONAL: No fever, no malaise, no fatigue. HEENT: No recent visual problems or hearing problems. Denied any sore throat. CARDIOVASCULAR: No chest pain, orthopnea, PND, no palpitations, no syncope. PULMONARY: No shortness of breath, no cough, no hemoptysis. GASTROINTESTINAL: No diarrhea, no nausea, no vomiting, no abdominal pain. NEUROLOGICAL: No headaches, no weakness, no numbness. HEMATOLOGICAL: Denies any bleeding or petechiae. GENITOURINARY: Denies any burning micturition, frequency, or urgency. MUSCULOSKELETAL/RHEUMATOLOGICAL: Denies any joint pain, swelling, or any muscle pain. ENDOCRINE: Denies any polyuria or polydipsia. PHYSICAL EXAMINATION: GENERAL: The patient is alert and oriented x3, not in any acute distress. Well developed, well nourished. HEENT: Pupils are round and equally reacting to light. EOMI. No scleral icterus. Normocephalic, atraumatic. CARDIOVASCULAR: S1 and S2 present. No murmurs, rubs, or gallops. PULMONARY: Chest is clear to auscultation, no wheezing or crackles. ABDOMEN: Soft, nontender, nondistended, normoactive bowel sounds. No palpable organomegaly. MUSCULOSKELETAL: No joint swelling or deformity. EXTREMITIES: No cyanosis, clubbing, or pedal edema. NEUROLOGICAL: Gross neurological examination did not reveal any focal deficits. SKIN: No rashes. Assesement * Acute bilateral pulm embolism * Chronic kidney disease BASELINE Creatinine 1.6 * Diabetes mellitus type 2 * Hyperlipidemia * Hypertension * Thoracic aortic aneurysm Plan * In regards to bilateral pulm embolism, CT chest prior to admission reviewed, continue IV heparin, echocardiogram ordered, follow-up on BNP levels and troponin levels, venous ultrasound lower extremity ordered * In regards to diabetes mellitus, Accu-Cheks ACHS continue patient on correctional insulin metformin on hold * In regards to chronic kidney disease, creatinine noted to be 1.57, close to baseline. * In regards to hypertension, continue lisinopril, metformin placed on hold * In regards to hyperlipidemia continue statin * CODE STATUS is full code Past Medical History Past Medical History: Diabetes Mellitus, Hypertension, Osteoarthritis (OA), Renal Disease Additional Past Medical History / Comment(s): kidney stones, aortic aneurysm found in 2022 History of Any Multi-Drug Resistant Organisms: None Reported Past Surgical History: Cholecystectomy Past Anesthesia/Blood Transfusion Reactions: No Reported Reaction Past Psychological History: Depression Smoking Status: Current every day smoker Past Alcohol Use History: Occasional Past Drug Use History: Marijuana - Past Family History Mother Family Medical History: No Reported History Medications and Allergies Home Medications Medication Instructions Recorded Confirmed Type Aspirin [Adult Low Dose Aspirin EC] 81 mg PO DAILY 03/31/18 10/15/23 History Atorvastatin [Lipitor] 40 mg PO W/SUPPER 12/26/20 10/15/23 History Metoprolol Succinate (ER) [Toprol 25 mg PO DAILY PRN 12/26/20 10/15/23 History Xl] lisinopriL [Prinivil] 20 mg PO W/SUPPER 12/26/20 10/15/23 History Apixaban [Eliquis Starter Pack 5 - 10 mg PO DIRECTED 30 Days 10/15/23 Rx (for VTE)] #1 each Dulaglutide [Trulicity] 1.5 mg SQ SA 10/15/23 10/15/23 History HYDROcodone/APAP 5-325MG [[place] 1 tab PO BID PRN 10/15/23 10/15/23 History 5-325] Venlafaxine HCl [Effexor XR] 75 mg PO W/SUPPER 10/15/23 10/15/23 History metFORMIN HCL 1,000 mg PO BID 10/15/23 10/15/23 History Allergies Allergy/AdvReac Type Severity Reaction Status Date / Time No Known Allergies Allergy Verified 10/15/23 09:35 Physical Exam Vitals: Vital Signs Temp Pulse Resp BP Pulse Ox 10/15/23 09:08 78 18 125/78 98 10/15/23 08:00 105 H 18 123/79 96 10/15/23 06:00 56 L 18 119/86 97 10/15/23 03:00 81 18 108/53 10/15/23 01:00 84 18 124/79 96 10/14/23 23:18 82 20 119/70 97 10/14/23 17:10 97.6 F 93 18 132/78 98 Intake and Output 10/14/23 10/15/23 10/15/23 22:59 06:59 14:59 Intake Total 174.356 0 Balance 174.356 0 Intake: Intake, IV Titration 174.356 0 Amount Heparin Sod,Pork in 0.45% 174.356 0 NaCl 25,000 unit In 0.45 % NaCl 1 250ml.bag @ 17.3 UNITS/KG/HR 22.992 mls/ hr IV .[id number] [facility] Rx#: [id number] Other: Weight 132.903 kg Results CBC & Chem 7: 10/15/23 05:41 10/14/23 17:45 Labs: Abnormal Lab Results - Last 24 Hours (Table) 10/14/23 10/14/23 10/15/23 Range/Units 17:45 17:45 05:41 WBC 12.3 H (3.8-10.6) k/uL RBC 3.95 L (4.30-5.90) m/uL Hgb 12.6 L (13.0-17.5) gm/dL MCV 100.2 H (80.0-100.0) fL Neutrophils # 8.6 H (1.3-7.7) k/uL APTT (22.0-30.0) sec Chloride 110 H (98-107) mmol/L Carbon Dioxide 19 L (22-30) mmol/L BUN 36 H (9-20) mg/dL Creatinine 1.57 H (0.66-1.25) mg/dL Glucose 103 H (74-99) mg/dL Calcium 11.3 H (8.4-10.2) mg/dL 10/15/23 Range/Units 05:41 WBC (3.8-10.6) k/uL RBC (4.30-5.90) m/uL Hgb (13.0-17.5) gm/dL MCV (80.0-100.0) fL Neutrophils # (1.3-7.7) k/uL APTT 108.2 H* (22.0-30.0) sec Chloride (98-107) mmol/L Carbon Dioxide (22-30) mmol/L BUN (9-20) mg/dL Creatinine (0.66-1.25) mg/dL Glucose (74-99) mg/dL Calcium (8.4-10.2) mg/dL
[2023-10-15] MEDS: INSULIN ASPART (NovoLOG) 100 UNIT/ML VIAL SQ SCH (13:11)
[2023-10-15 13:12] LABS: Glucose,Whole Blood 99 mg/dL (70-110)
--- NOTE | 2023-10-15 14:07 | US ---
EXAMINATION TYPE: US venous doppler duplex LE DATE OF EXAM: 10/15/2023 1:37 PM COMPARISON: NONE CLINICAL INDICATION: Male, 58 years old with history of Pulmonary embolism evaluate for DVT; PE SIDE PERFORMED: bilateral TECHNIQUE: The lower extremity deep venous system is examined utilizing real time linear array sonog concepción with graded compression, doppler sonography and color-flow sonography. VESSELS IMAGED: Common Femoral Vein Deep Femoral Vein Greater Saphenous Vein * Femoral Vein Popliteal Vein Small Saphenous Vein * Proximal Calf Veins (* superficial vessels) Right Leg: *Positive for DVT right femoral vein extending into popliteal vein Left Leg: no evidence of DVT IMPRESSION: 1. Exam positive for right lower extremity DVT extending from the femoral vein down into the upper ca lf. 2. No evidence for DVT within the left lower extremity imaged from the groin to the upper calf.
--- NOTE | 2023-10-15 14:43 | P.CNPUL ---
History of Present Illness Consult date: 10/15/23 Requesting physician: Vangie Ruiz Reason for consult: dyspnea, hypoxemia, pulmonary embolism, abnormal CXR/CT Chief complaint: Shortness of breath. History of present illness: Pulmonary consult dated October 15, 2023. 58-year-old male who was seen in the emergency department, room #8. The patient apparently was having a scan of his chest, to evaluate his thoracic aorta. At that time, it was apparent that the patient had evidence of bilateral pulmonary emboli, and was sent to the emergency department, for further monitoring and management. The patient is currently on room air. He is receiving IV heparin, and saline at 20 cc an hour. The patient appears to have an unprovoked pulmona ry embolism. He denies any recent surgery, especially surgery to the lower extremities. He also denies any trauma to the lower extremities. The patient does not have a history of active cancer. In addition, he denies being sedentary. He specifically denies any long train rides, boat rides, plane rides, or car rides. The patient does not have a family history of pulmonary emboli. The patient does have a history of diabetes mellitus, hypertension, osteoarthritis, kidney stones, and depression. He does smoke cigarettes on a daily basis. When asked about symptomatology, the only thing he mentions was that he was fatigued, and short of breath. He noticed that over the last couple of weeks, or even a month. Laboratory data includes a white count 10.2, hemoglobin 12.6, hematocrit 39.6, and a normal platelet count. PTT was 108.2. Sodium 142, potassium 5.1, chlorides 110, CO2 19, BUN 36, creatinine 1.57. Glucose was 99. Troponin was negative. N-terminal proBNP was normal. Venous Doppler studies were negative for DVT on the left lower leg, but positive for DVT in the right femoral vein. CT angiogram done on October 13, showed bilateral pulmonary emboli, and mild emphysematous changes. The pulmonary emboli were noted in the distal right and left pulmonary arteries, and proximal segmental branches, involving the left upper lobe and lower lobes, and right lower lobe as well. Review of Systems REVIEW OF SYSTEMS: CONSTITUTIONAL: Fatigue on exertion. NEUROLOGIC: [ Negative.] HEENT: [ Negative.] CARDIAC: [Negative.] PULMONARY: Mild shortness of breath. GI: [Negative.] : [Negative.] RHEUMATOLOGIC: [ Negative.] IMMUNOLOGIC: [ Negative.] ENDOCRINE: [Negative. ] DERMATOLOGIC: [Negative.] Past Medical History Past Medical History: Diabetes Mellitus, Hypertension, Osteoarthritis (OA), Renal Disease Additional Past Medical History / Comment(s): kidney stones, aortic aneurysm found in 2022 History of Any Multi-Drug Resistant Organisms: None Reported Past Surgical History: Cholecystectomy Past Anesthesia/Blood Transfusion Reactions: No Reported Reaction Past Psychological History: Depression Smoking Status: Current every day smoker Past Alcohol Use History: Occasional Past Drug Use History: Marijuana - Past Family History Mother Family Medical History: No Reported History Medications and Allergies Home Medications Medication Instructions Recorded Confirmed Type Aspirin [Adult Low Dose Aspirin EC] 81 mg PO DAILY 03/31/18 10/15/23 History Atorvastatin [Lipitor] 40 mg PO W/SUPPER 12/26/20 10/15/23 History Metoprolol Succinate (ER) [Toprol 25 mg PO DAILY PRN 12/26/20 10/15/23 History Xl] lisinopriL [Prinivil] 20 mg PO W/SUPPER 12/26/20 10/15/23 History Apixaban [Eliquis Starter Pack 5 - 10 mg PO DIRECTED 30 Days 10/15/23 Rx (for VTE)] #1 each Dulaglutide [Trulicity] 1.5 mg SQ SA 10/15/23 10/15/23 History HYDROcodone/APAP 5-325MG [[place] 1 tab PO BID PRN 10/15/23 10/15/23 History 5-325] Venlafaxine HCl [Effexor XR] 75 mg PO W/SUPPER 10/15/23 10/15/23 History metFORMIN HCL 1,000 mg PO BID 10/15/23 10/15/23 History Allergies Allergy/AdvReac Type Severity Reaction Status Date / Time No Known Allergies Allergy Verified 10/15/23 09:35 Physical Exam Osteopathic Statement: *. No significant issues noted on an osteopathic structural exam other than those noted in the History and Physical/Consult. Vitals: Vital Signs Temp Pulse Resp BP Pulse Ox 10/15/23 13:04 104 H 18 103/50 96 10/15/23 11:00 98 18 126/83 97 10/15/23 09:08 78 18 125/78 98 10/15/23 08:00 105 H 18 123/79 96 10/15/23 06:00 56 L 18 119/86 97 10/15/23 03:00 81 18 108/53 10/15/23 01:00 84 18 124/79 96 10/14/23 23:18 82 20 119/70 97 10/14/23 17:10 97.6 F 93 18 132/78 98 Intake and Output 10/14/23 10/15/23 10/15/23 22:59 06:59 14:59 Intake Total 174.356 71.586 Balance 174.356 71.586 Intake: Intake, IV Titration 174.356 71.586 Amount Heparin Sod,Pork in 0.45% 174.356 71.586 NaCl 25,000 unit In 0.45 % NaCl 1 250ml.bag @ 17.3 UNITS/KG/HR 22.992 mls/ hr IV .[id number] [facility] Rx#: [id number] Other: Weight 132.903 kg No acute distress, oriented 3. No respiratory distress. No use of accessory muscles. No conversational dyspnea. HEENT examination is grossly unremarkable. Mucous membranes are moist. No oral lesions. Neck supple. Full range of motion. No adenopathy thyromegaly or neck vein distention. Cardiovascular examination reveals regular rhythm rate. S1-S2 normal. No S3 or S4. No discernible murmur noted. Heart rate 98 bpm. Lungs reveal clear breath sounds. Breath sounds are equal bilaterally. No adventitious lung sounds including wheezes rhonchi or crackles. Room air saturation was 97%. Abdomen soft bowel sounds are heard. No masses or tenderness. Extremities are intact. No cyanosis clubbing or edema. Skin is without rash or lesion. Neurologic examination is brief but nonfocal. Results - Laboratory Findings CBC and BMP: 10/15/23 05:41 10/14/23 17:45 PT/INR, D-dimer PT 10.1 sec (10.0-12.5) 10/14/23 17:45 INR 0.9 (<1.2) 10/14/23 17:45 Abnormal lab findings: Abnormal Labs 10/14/23 10/14/23 10/15/23 17:45 17:45 05:41 WBC 12.3 H RBC 3.95 L Hgb 12.6 L MCV 100.2 H Neutrophils # 8.6 H APTT Chloride 110 H Carbon Dioxide 19 L BUN 36 H Creatinine 1.57 H Glucose 103 H POC Glucose (mg/dL) Calcium 11.3 H 10/15/23 10/15/23 05:41 11:12 WBC RBC Hgb MCV Neutrophils # APTT 108.2 H* Chloride Carbon Dioxide BUN Creatinine Glucose POC Glucose (mg/dL) 161 H Calcium - Diagnostic Findings CT scan - chest: image reviewed U/S of Legs: image reviewed Assessment and Plan Assessment: Unprovoked bilateral pulmonary emboli, and right lower extremity DVT. History of hypertension. History of hyperlipidemia. History of diabetes mellitus. History of ongoing tobacco use with nicotine addiction. History of kidney stones. History of aortic aneurysm. History of depression. Plan: Plan dated October 15, 2023. The patient was discovered to have bilateral pulmonary emboli, and a right lower extremity DVT. The patient was seen in the emergency department, room 8. The patient was on IV heparin, room air, and saline at 20 cc an hour. Labs, x-rays, and medications are all reviewed. We will continue to follow patient, make recommendations along the way. The patient should be treated for at least 6 months, as this appears to be an unprovoked pulmonary embolism. The patient's major complaint was that of fatigue, and shortness of breath on exertion. Time with Patient: Greater than 30
[2023-10-15] MEDS: HEPARIN SODIUM 1,000 UN/ML (10ML VL) IV PRN (15:54)
[2023-10-15 17:51] LABS: Glucose,Whole Blood 95 mg/dL (70-110)
[2023-10-15] MEDS: lisinopriL 20 MG TAB PO SCH (18:06)
[2023-10-15] MEDS: ATORVASTATIN 40 MG TAB PO SCH (18:06)
[2023-10-15] MEDS: VENLAFAXINE HCL ER 75 MG CAP PO SCH (18:07)
[2023-10-15 21:08] LABS: Glucose,Whole Blood 125 mg/dL (70-110)
[2023-10-16 05:57] LABS: HCT 41.1 % (39.0-53.0); HGB 13.4 gm/dL (13.0-17.5); MCH 32.1 pg (25.0-35.0); MCHC 32.5 g/dL (31.0-37.0); MCV 98.8 fL (80.0-100.0); Mean Platelet Volume 7.8; Platelet Count 197 k/uL (150-450); RBC 4.16 m/uL (4.30-5.90); WBC 9.3 k/uL (3.8-10.6)
[2023-10-16 06:17] LABS: African American GFR (CKD) 88 (>60 ml/min/1.73 sqM); Anion Gap 6 mmol/L; Blood Urea Nitrogen 25 mg/dL (9-20); Carbon Dioxide 22 mmol/L (22-30); Chloride 114 mmol/L (98-107); Glucose 121 mg/dL (74-99); Non-African American GFR(CKD) 77 (>60 ml/min/1.73 sqM); Potassium 4.6 mmol/L (3.5-5.1); Sodium 142 mmol/L (137-145)
[2023-10-16 06:21] VITALS: BP 128/91; PULSE 94
[2023-10-16 06:26] LABS: NT-Pro-B-Type Natriuretic Pept 21 pg/mL
[2023-10-16] MEDS: Apixaban Initiation Dose--VTE 5 MG TAB PO SCH (09:07)
--- NOTE | 2023-10-16 09:43 | CA ---
Transthoracic Echo Report Name: Adama Unger Age: 58 Gender: M : 1965 Exam Date: 10/15/2023 12:38 Exam Location: [place] [facility] Ht (in): 72 Wt (lb): 293 Ordering Physician: Carlie Nugent MD Attending/Referring Phys: Chief Maintenance Supervisor Hannah Knowles RDCS Procedure CPT: Indications: pulmonary emboli Cardiac Hx: Technical Quality: Very technically difficult study Contrast 1: Definity Total Dose (mL): 2 Contrast 2: Total Dose (mL): MEASUREMENTS (Male / Female) Normal Values 2D ECHO LV Diastolic Volume MOD BP 99.3 cm??? 67 - 155 / 56 - 104 cm??? LV Systolic Volume MOD BP 48.8 cm??? 22 - 58 / 19 - 49 cm??? LV Ejection Fraction MOD BP 50.8 % >= 55 % LV Cardiac Index MOD BP 1427.2 cm???/min???m??? LV Diastolic Volume MOD 4C 128.8 cm??? LV Systolic Volume MOD 4C 59.8 cm??? LV Ejection Fraction MOD 4C 53.6 % LV Cardiac Index MOD 4C 1949.8 cm???/min???m??? LV Diastolic Length 4C 9.0 cm LV Systolic Length 4C 7.6 cm LV Diastolic Volume MOD 2C 69.0 cm??? LV Systolic Volume MOD 2C 35.3 cm??? LV Ejection Fraction MOD 2C 48.8 % LV Cardiac Index MOD 2C 951.8 cm???/min???m??? LV Diastolic Length 2C 8.0 cm LV Systolic Length 2C 6.6 cm LA Volume 72.6 cm??? 18 - 58 / 22 - 52 cm??? LA Volume Index 27.4 cm???/m??? 16 - 28 cm???/m??? DOPPLER AV Peak Velocity 127.1 cm/s AV Peak Gradient 6.5 mmHg AV Mean Velocity 89.1 cm/s AV Mean Gradient 3.5 mmHg AV Velocity Time Integral 22.4 cm LVOT Peak Velocity 112.3 cm/s LVOT Peak Gradient 5.0 mmHg LVOT Velocity Time Integral 21.3 cm MV Area PHT 2.9 cm??? Mitral E Point Velocity 52.1 cm/s Mitral A Point Velocity 69.5 cm/s Mitral E to A Ratio 0.7 MV Deceleration Time 258.8 ms FINDINGS Left Ventricle Left ventricular ejection fraction is estimated at 50-55%. Mildly decreased left ventricular ejection fraction. Left ventricular cavity size normal. Left ventricular wall thickness normal. No obvious regional wall motion abnormalities. Right Ventricle Mild right ventricular dilatation with normal function. Unable to estimate right ventricular systolic pressure. Right Atrium Severe right atrial dilatation. Left Atrium Moderately increased left atrial volume. Mildly increased left atrial area. Mitral Valve Structurally normal mitral valve. No mitral stenosis, regurgitation or prolapse. Aortic Valve Aortic valve not well visualized. No aortic valve stenosis or regurgitation. Tricuspid Valve Tricuspid valve not well visualized. No tricuspid stenosis. No tricuspid regurgitation. Pulmonic Valve Pulmonic valve not well visualized. Pericardium No pericardial effusion. Aorta Aortic root and proximal ascending aorta not well visualized. CONCLUSIONS Normal LV systolic function Dilated right atrium Previewed by: Dr. Matt Antunez MD (Electronically Signed) Final Date: 16 October 2023 09:42
--- NOTE | 2023-10-16 11:46 | P.DS ---
Providers Date of admission: 10/14/23 22:42 Expected date of discharge: 10/16/23 Attending physician: Vangie Ruiz MD Consults: 10/14/23 22:40 Consult Physician Routine Consulting Provider: Jeremy Martin Consult Reason/Comments: Pulmonary embolism Do you want consulting provider notified?: Yes Primary care physician: Jose Delgadillo MD Hospital Course: * 58-year-old patient with past medical history significant for diabetes mellitus, hypertension, history of aortic aneurysm, osteoarthritis, presents to the emergency department sent in by primary care provider after patient was noted to have abnormal CT chest. Patient had outpatient CT chest done for follow-up on aortic aneurysm which showed bilateral pulmonary emboli, mild emphysematous changes, 4 cm aneurysm dilatation of ascending thoracic aorta, * Workup in ER included CBC which showed WBC of 12.3 hemoglobin 14.9 platelet count of 240 * INR of 0.9, PT of 10.1 PTT of 22.4 * Serum chemistry showed sodium 142 potassium 5.1 chloride 110 BUN 36 creatinine 1.57 glucose 103 calcium of 11.3 * Patient was started on IV heparin drip and admitted to medical floor with consultations from pulmonary medicine * Cost inquiry for Eliquis initiated * 10/16/23 : Patient had workup completed including venous ultrasound which showed positive for DVT right femoral vein extending into popliteal vein. Echocardiogram shows normal left ventricular function dilated right atrium. Patient was scheduled to be discharged however patient did not wait and left by 10:30 AM. Nursing staff was instructed that patient will be evaluated b efore discharge however patient received discharge paperwork and was discharged home prior to rounds Assesement * Acute bilateral pulm embolism * Acute DVT right femoral vein extending into popliteal vein * Chronic kidney disease BASELINE Creatinine 1.6 * Diabetes mellitus type 2 * Hyperlipidemia * Hypertension * Thoracic aortic aneurysm Plan * In regards to bilateral pulm embolism, CT chest prior to admission reviewed, transition from IV heparin to Eliquis, echocardiogram shows preserved ejection fraction, follow-up on BNP levels within normal limits and troponin levels normal, venous ultrasound lower extremity shows DVT right lower extremity * In regards to diabetes mellitus, Accu-Cheks ACHS, HbA1c 8.6 continue home regimen follow-up with PCP * In regards to chronic kidney disease, creatinine noted to be 1.57, close to baseline. * In regards to hypertension, continue lisinopril, * In regards to hyperlipidemia continue statin * Patient discharged home on Eliquis starter pack plan to get refills from PCP Patient Condition at Discharge: Good Plan - Discharge Summary New Discharge Prescriptions: New Apixaban [Eliquis Starter Pack (for VTE)] 5 - 10 mg PO DIRECTED 30 Days #1 each Continue Aspirin [Adult Low Dose Aspirin EC] 81 mg PO DAILY Atorvastatin [Lipitor] 40 mg PO W/SUPPER HYDROcodone/APAP 5-325MG [[place] 5-325] 1 tab PO BID PRN PRN Reason: Pain Dulaglutide [Trulicity] 1.5 mg SQ SA Venlafaxine HCl [Effexor XR] 75 mg PO W/SUPPER Metoprolol Succinate (ER) [Toprol XL] 25 mg PO DAILY PRN PRN Reason: Blood Pressure - High lisinopriL [Prinivil] 20 mg PO W/SUPPER metFORMIN HCL 1,000 mg PO BID Discharge Medication List Aspirin [Adult Low Dose Aspirin EC] 81 mg PO DAILY 03/31/18 [History] Atorvastatin [Lipitor] 40 mg PO W/SUPPER 12/26/20 [History] Metoprolol Succinate (ER) [Toprol XL] 25 mg PO DAILY PRN 12/26/20 [History] lisinopriL [Prinivil] 20 mg PO W/SUPPER 12/26/20 [History] Dulaglutide [Trulicity] 1.5 mg SQ SA 10/15/23 [History] HYDROcodone/APAP 5-325MG [[place] 5-325] 1 tab PO BID PRN 10/15/23 [History] Venlafaxine HCl [Effexor XR] 75 mg PO W/SUPPER 10/15/23 [History] metFORMIN HCL 1,000 mg PO BID 10/15/23 [History] Apixaban [Eliquis Starter Pack (for VTE)] 5 - 10 mg PO DIRECTED 30 Days #1 each 10/16/23 [Rx] Follow up Appointment(s)/Referral(s): Jose Delgadillo MD [Primary Care Provider] - 1-2 days Jeremy Martin DO [Doctor of Osteopathic Medicine] - 1 Week Activity/Diet/Wound Care/Special Instructions: Continue diabetic diet, 1800 jocelyn a day Continue Eliquis, you will need refills on this medication follow-up with [facility] care physician Caution while on Eliquis, increased risk of bleeding Discharge Disposition: HOME SELF-CARE
--- NOTE | 2023-10-16 13:36 | P.PN ---
Subjective Progress Note Date: 10/16/23 Principal diagnosis: Shortness of breath and fatigue. Pulmonary consult dated October 15, 2023. 58-year-old male who was seen in the emergency department, room #8. The patient apparently was having a scan of his chest, to evaluate his thoracic aorta. At that time, it was apparent that the patient had evidence of bilateral pulmonary emboli, and was sent to the emergency department, for further monitoring and management. The patient is currently on room air. He is receiving IV heparin, and saline at 20 cc an hour. The patient appears to have an unprovoked pulmonary embolism. He denies any recent surgery, especially surgery to the lower extremities. He also denies any trauma to the lower extremities. The patient does not have a history of active cancer. In addition, he denies being sedentary. He specifically denies any long train rides, boat rides, plane rides, or car rides. The patient does not have a family history of pulmonary emboli. The patient does have a history of diabetes mellitus, hypertension, osteoarthritis, kidney stones, and depression. He does smoke cigarettes on a daily basis. When asked about symptomatology, the only thing he mentions was that he was fatigued, and short of breath. He noticed that over the last couple of weeks, or even a month. Laboratory data includes a white count 10.2, hemoglobin 12.6, hematocrit 39.6, and a normal platelet count. PTT was 108.2. Sodium 142, potassium 5.1, chlorides 110, CO2 19, BUN 36, creatinine 1.57. Glucose was 99. Troponin was negative. N-terminal proBNP was normal. Venous Doppler studies were negative for DVT on the left lower leg, but positive for DVT in the right femoral vein. CT angiogram done on October 13, showed bilateral pulmonary emboli, and mild emphysematous changes. The pulmonary emboli were noted in the distal right and left pulmonary arteries, and proximal segmental branches, involving the left upper lobe and lower lobes, and right lower lobe as well. Progress note dated October 16, 2023. The patient is seen today in the emergency department, again, in room 8. The patient's IV heparin can be discontinued in favor of Eliquis. He is currently on room air. Doppler of the lower extremity on the right, did reveal a DVT. The patient will follow-up with me in the office. Currently he is feeling rather well. As mentioned, he is not complaining of any shortness of breath. Current laboratory data includes a white count 9.3, hemoglobin 13.4, hematocrit 41.1, and a normal platelet count. Sodium 142, potassium 4.6, chlorides 114, CO2 22, BUN 25, and creatinine 1.06. Glucose is 121. Objective - Vital Signs Vital signs: Vital Signs Temp 97.6 F 10/14/23 17:10 Pulse 94 10/16/23 06:09 Resp 18 10/16/23 06:09 BP 128/91 10/16/23 06:09 Pulse Ox 96 10/16/23 06:09 FiO2 Intake & Output 10/15/23 10/16/23 10/16/23 18:59 06:59 18:59 Intake Total 149.507 169.436 Balance 149.507 169.436 Intake: Intake, IV Titration 149.507 169.436 Amount Heparin Sod,Pork in 0.45% 149.507 169.436 NaCl 25,000 unit In 0.45 % NaCl 1 250ml.bag @ 17.3 UNITS/KG/HR 22.992 mls/ hr IV .[id number] [facility] Rx#: [id number] - Exam No acute distress, oriented 3. HEENT examination is grossly unremarkable. Mucous membranes are moist. No oral lesions. Neck supple. Full range of motion. No adenopathy thyromegaly or neck vein distention. Cardiovascular examination reveals regular rhythm rate. S1-S2 normal. No S3 or S4. No discernible murmur noted. Heart rate 82 bpm. Lungs reveal clear breath sounds. Breath sounds are equal bilaterally. No adventitious lung sounds including wheezes rhonchi or crackles. Abdomen soft bowel sounds are heard. No masses or tenderness. Extremities are intact. No cyanosis clubbing or edema. Skin is without rash or lesion. Neurologic examination is brief but nonfocal. - Labs CBC & Chem 7: 10/16/23 05:19 10/16/23 05:19 Labs: Abnormal Lab Results - Last 24 Hours (Table) 10/15/23 10/15/23 10/15/23 Range/Units 14:13 21:07 21:39 RBC (4.30-5.90) m/uL APTT 32.3 H 136.7 H* (22.0-30.0) sec Chloride (98-107) mmol/L BUN (9-20) mg/dL Glucose (74-99) mg/dL POC Glucose (mg/dL) 125 H (70-110) mg/dL Hemoglobin A1c (<=6.0) % Calcium (8.4-10.2) mg/dL 10/16/23 10/16/23 10/16/23 Range/Units 05:19 05:19 05:19 RBC 4.16 L (4.30-5.90) m/uL APTT (22.0-30.0) sec Chloride 114 H (98-107) mmol/L BUN 25 H (9-20) mg/dL Glucose 121 H (74-99) mg/dL POC Glucose (mg/dL) (70-110) mg/dL Hemoglobin A1c 8.6 H (<=6.0) % Calcium 11.0 H (8.4-10.2) mg/dL 10/16/23 Range/Units 05:19 RBC (4.30-5.90) m/uL APTT 61.4 H (22.0-30.0) sec Chloride (98-107) mmol/L BUN (9-20) mg/dL Glucose (74-99) mg/dL POC Glucose (mg/dL) (70-110) mg/dL Hemoglobin A1c (<=6.0) % Calcium (8.4-10.2) mg/dL Assessment and Plan Assessment: Unprovoked bilateral pulmonary emboli, and right lower extremity DVT. History of hypertension. History of hyperlipidemia. History of diabetes mellitus. History of ongoing tobacco use with nicotine addiction. History of kidney stones. History of aortic aneurysm. History of depression. Plan: Plan dated October 15, 2023. The patient was discovered to have bilateral pulmonary emboli, and a right lower extremity DVT. The patient was seen in the emergency department, room 8. The patient was on IV heparin, room air, and saline at 20 cc an hour. Labs, x-rays, and medications are all reviewed. We will continue to follow patient, make recommendations along the way. The patient should be treated for at least 6 months, as this appears to be an unprovoked pulmonary embolism. The patient's major complaint was that of fatigue, and shortness of breath on exertion. Plan dated October 16, 2023. The patient's IV heparin can be discontinued, in favor of Eliquis. The patient had an unprovoked pulmonary embolism, and should be treated for at least 6 months. The patient will follow-up in the office with me. The patient will need a follow-up CT angiogram, in 10 to 12 weeks. I explained to the patient, that the blood thinner, does not dissolve the clot, but rather, his body will do that, if it is functioning normally. Labs, x-rays, medications are reviewed. We will continue to follow the patient, make recommendations. Prognosis is guarded. Time with Patient: Less than 30
== END 2023-10-16 11:31 | disposition home or self-care (01) ==
LOC: EC 16:41 → 3SCARD 22:42 → INTOOBSV 22:42 → 3SCARD 23:12 → UNDODISIN 10-16 11:31
PROVIDERS: ADMIT Internal Medicine; ATTEND Internal Medicine
DX: I26.99 Other pulmonary embolism without acute cor pulmonale (principal); I82.411 Acute embolism and thrombosis of right femoral vein; I12.9 Hypertensive chronic kidney disease with stage 1 through stage 4 chronic kidney disease, or unspecified chronic kidney disease; N18.9 Chronic kidney disease, unspecified; E11.22 Type 2 diabetes mellitus with diabetic chronic kidney disease; I71.20 Thoracic aortic aneurysm, without rupture, unspecified; I82.431 Acute embolism and thrombosis of right popliteal vein; E78.5 Hyperlipidemia, unspecified; M19.90 Unspecified osteoarthritis, unspecified site; F32.A Depression, unspecified; F17.210 Nicotine dependence, cigarettes, uncomplicated; Z79.82 Long term (current) use of aspirin; Z79.84 Long term (current) use of oral hypoglycemic drugs; Z79.85 Long-term (current) use of injectable non-insulin antidiabetic drugs; Z79.899 Other long term (current) drug therapy; Z87.442 Personal history of urinary calculi
CPT/HCPCS: 96376 ×2; 96365; 96366 ×2; 99285; 36415; 93005; 83880 ×2; 80053; 80048; 84484; 85025 ×2; 85027; 85610; 85730 ×3; 83036; 93970; G0378 ×3; C8929; Q9957; J1644 ×5; 93306

== ENCOUNTER → 2023-10-14 | Outpatient (CLI) | payer OTHER ==
[2023-10-14 14:51] LABS: African American GFR (CKD) 48 (>60 ml/min/1.73 sqM); Blood Urea Nitrogen 37 mg/dL (9-20); Non-African American GFR(CKD) 41 (>60 ml/min/1.73 sqM)
--- NOTE | 2023-10-14 16:00 | CT ---
EXAMINATION TYPE: CT angio chest DATE OF EXAM: 10/14/2023 3:46 PM COMPARISON: None HISTORY: Monitoring aneurysm CT DLP: 876.2 mGycm Automated exposure control for dose reduction was used. CONTRAST: CTA scan of the thorax is performed with IV Contrast, patient injected with 80 mL of Isovue 370, pulm onary embolism protocol. The post processing was performed.. FINDINGS: There are mild emphysematous changes. There is a small loculated fluid collection at the confluence of the major and minor fissures in the right lung posteriorly. There is no suspicious lung mass or nodule. There is no airspace consolidation or abnormal interstitial density There is a 4 cm aneurysmal dilatation of ascending thoracic aorta. There are multiple filling defects in the distal right and left pulmonary arteries and proximal segme ntal branches involving the left upper and lower lobes and right lower lobe. Limited scanning through the upper abdomen reveals cholecystectomy. No focal osseous lesions are seen. IMPRESSION: 1. Bilateral pulmonary emboli as described above. 2. Mild emphysematous changes. 3. 4 cm aneurysmal dilatation of ascending thoracic aorta. 4. Small focal loculated fluid collection in the right lung posteriorly as described above.2
== END | disposition home or self-care (01) ==
LOC: RADCTMAIN 14:04 → RADMRIMAIN 14:11
PROVIDERS: ATTEND Family Medicine
DX: J43.9 Emphysema, unspecified (principal); I71.40 Abdominal aortic aneurysm, without rupture, unspecified; I71.21 Aneurysm of the ascending aorta, without rupture; I26.99 Other pulmonary embolism without acute cor pulmonale; R91.8 Other nonspecific abnormal finding of lung field
CPT/HCPCS: 82565; 84520; 71275; 36415; Q9967

== ENCOUNTER → 2024-04-09 | Outpatient (CLI) | payer OTHER ==
[2024-04-09 09:21] LABS: African American GFR (CKD) >90 (>60 ml/min/1.73 sqM); Blood Urea Nitrogen 19 mg/dL (9-20); Non-African American GFR(CKD) 87 (>60 ml/min/1.73 sqM)
--- NOTE | 2024-04-09 10:42 | CT ---
EXAMINATION TYPE: CT angio chest CT DLP: 1056.40 mGycm, Automated exposure control for dose reduction was used. DATE OF EXAM: 04/09/2024 10:24 AM COMPARISON: CTA chest 10/14/2023, CT low-dose lung 04/04/2023 CLINICAL INDICATION:Male, 59 years old with history of I26.99 pulmonary embolism; Hx of blood clots, aortic aneurysm. PT iv extravasated during first scan, had to repeat TECHNIQUE/CONTRAST: CTA scan of the thorax is performed with IV Contrast, patient injected with 160 mL of Isovue 370, pul monary embolism protocol. MIP images are created and reviewed. Reported IV extravasation. FINDINGS: Pulmonary Artery: There is no evidence for a filling defect within the pulmonary vasculature to sugge st acute pulmonary embolism. Resolution of previous redemonstrated pulmonary emboli. The pulmonary ar katerine is of normal size. Lungs/Pleura: No pleural effusion or pneumothorax. Mild centrilobular emphysematous change. Decreased loculated fluid collection of the confluence of the major minor fissures of the right lung posterior ly with some trace residual linear opacity. Stable left upper lobe 5 mm pulmonary nodule (series 5, i mage 54). No new or enlarging pulmonary nodules. Airway: Large airways are patent. Heart: Heart is within normal limits for size.. No pericardial effusion. Vasculature: Stable ascending thoracic aortic aneurysm measuring up to 4.2 cm when measured with lu lar technique. Bovine aortic arch. Mediastinum: No gross evidence of adenopathy. Musculoskeletal: No acute osseous abnormalities. [facility] of the thoracic spine. Soft Tissues: Minimal bilateral gynecomastia. Lower neck: No significant findings. Upper Abdomen: Gallbladder is surgically absent.. IMPRESSION: 1. Resolution of previously demonstrated pulmonary emboli. 2. Stable ascending thoracic aortic aneurysm measuring up to 4.2 cm when measured with similar techni que. 3. Decreased loculated fluid collection within the right posterior lung with some residual linear opa city. [facility], , 04/09/2024 10:39 AM
== END | disposition home or self-care (01) ==
LOC: RADCTMAIN 08:26
PROVIDERS: ATTEND Internal Medicine Critical Care Medicine
CPT/HCPCS: 36415; 71275; 82565; 84520

== ENCOUNTER → 2024-09-28 | Outpatient (CLI) | payer OTHER ==
[2024-09-28 07:53] LABS: African American GFR (CKD) >90 (>60 ml/min/1.73 sqM); Blood Urea Nitrogen 20 mg/dL (9-20); Non-African American GFR(CKD) 82 (>60 ml/min/1.73 sqM)
--- NOTE | 2024-09-30 10:15 | CT ---
EXAMINATION TYPE: CT angio chest DATE OF EXAM: 09/28/2024 8:27 AM COMPARISON: 04/09/2024 CLINICAL INDICATION: Male, 59 years old with history of I71.21 ANEURYSM OF THE ASCENDING AORTA, WITHO UT RU, HISTORY OF PE, TECHNIQUE: CT of the chest is performed on a spiral scan at 2 mm thick sections. Study is performed with intravenous contrast timed for evaluation for pulmonary embolism. Thoracic aneurysm was also ev aluated. This will limit additional portions of the evaluation. 10mm MIP images reconstructed by the technologist are reviewed on the computer in the coronal and sagittal planes. Contrast used:65 ML mL of Isovue 370 with IV Contrast, (none if empty) Oral contrast used: (none if empty) CT DLP: 564.3 mGycm, Automated exposure control for dose reduction was used. FINDINGS: No persistent filling defects are evident to suggest an acute pulmonary embolism. No mediastinal or hilar adenopathy enlarged by CT criteria is evident. The ascending aorta diameter at the level of the main pulmonary artery is 4.1 cm. The main pulmonary artery diameter at the bifurcation is 2.7 cm. Aorta at the aortic root is 3.8 cm. Transverse dimens ion of the mid thoracic aortic arch is 3.0 cm. Aorta at the diaphragm is 2.7 cm. The celiac axis, delgado perior mesenteric artery, and renal arteries proximal aorta appear normal. Lung windows are clear. No significant coronary artery calcifications. Limited CT sections were through the upper abdomen. Upper abdomen appears unremarkable. IMPRESSION: 1. No acute or chronic pulmonary emboli. 2. Ascending thoracic aortic aneurysm measuring 4.1 cm. [facility], , 09/30/2024 10:13 AM
== END | disposition home or self-care (01) ==
LOC: RADCTMAIN 06:50
PROVIDERS: ATTEND Family Medicine
DX: I71.21 Aneurysm of the ascending aorta, without rupture (principal)
CPT/HCPCS: 82565; 84520; 71275; 36415; Q9967